=== PATIENT | female | born 1950 | race Caucasian/White ===

== ENCOUNTER 2024-01-30 09:17 | Inpatient (IN) | payer OTHER, SELFPAY ==
--- NOTE | 2024-01-30 09:36 | W.PN.CARDCBS ---
Addendum entered and electronically signed by Cornelius Almanza MD 01/30/24 11:35:
I saw and examined the patient.
The Glass Belt Sander's note was reviewed and I agree with the note.
Comment: Briefly, 73-year-old woman past medical history of persistent atrial fibrillation with 2 prior PVI's who has had recurrence of atrial fibrillation and now presents for sotalol loading
Currently in normal sinus rhythm
Monitor on telemetry while here
Check electrolytes and renal function
Serial twelve-lead ECGs to monitor QTc
Rest per Catherine Eatofelia
Original Note:
Today's Communication / Plan
-
Start sotalol 80 mg BID
Impression / Plan
-
PCP: Dr. Alvarez
Cardiology: primary research aide closer to home and then sees Dr. Mauricio Iniguez locally for EP
Impression:
Direct admission for sotalol load 01/30/24
Paroxysmal Afib
s/p PVI with additional AF ablation and mapping of second LA tachycardia 07/01/22
s/p PVI 11/01/22
HTN
Hyperlipidemia.
Gastroesophageal reflux disease.
Insomnia.
Breast cancer 2022, stage IB, status post right lumpectomy with lymph node dissection and radiation.
Remote tobacco abuse.
Spinal stenosis, degenerative disc disease with peripheral neuropathy.
Ambulatory dysfunction.
Tremor.
Osteoarthritis.
Obesity BMI 33.61.
Daily alcohol
Plan:
-Patient came to today as a direct admission for sotalol loading for recent recurrence of known paroxysmal Afib. Patient was seen in the office 01/25/24 and her Kardia monitor was reviewed and showed pAfib starting early 11/2023 and patient was in
Afib by ECG in office. Patient was agreeable to sotalol loading.
-Start sotalol 80 mg BID
-Patient has not missed any doses of Xarelto 20 mg daily
-Initial ECG appears to be SR with QTc 453 ms
-Follow HRs and if needed can lower dose of Toprol XL 50 mg BID
-Cont usual dose of Lasix 20 mg PO daily
Progress Note - Marketing Programs Specialist
Subjective
Date of Service: January 30, 2024
No palpitations
Objective
Vital Signs and I&O:
HR 65, BP 138/88 RR 12
Physical Exam
Physical Exam
GEN: NAD. AAOx3
HEENT: EOMI, MMM
LUNGS: CTA B/L, no wheezes or rales
CV: Reg, no murmur
ABD: soft, BS+, NT, ND
EXT: No clubbing, cyanosis, lesions or edema B/L
NEURO: Gross non-focal
SKIN: Warm, dry and pink. No rash
[2024-01-30 09:42] VITALS: BP 133/84
[2024-01-30 09:45] VITALS: BMI 34.4
[2024-01-30 10:10] LABS: Hematocrit 36.8 % (37.0-47.0); Hemoglobin 13.3 g/dL (12.0-16.0); Mean Corp Hgb Conc. 36.1 g/dL (33.0-37.0); Mean Corpuscular Hgb 33.5 pg (27.0-31.0); Mean Corpuscular Volume 92.7 fL (81.0-99.0); Mean Platelet Volume 9.4 fL (7.4-10.4); Platelet Count 282 10^3/uL (130-400); Red Blood Cell Count 3.97 10^6/uL (4.20-5.40); Red Cell Dist. Width 11.9 % (11.5-14.5); White Blood Cell Count 5.7 10^3/uL (4.8-10.8)
[2024-01-30 10:24] LABS: ALT (SGPT) 29 U/L (0-35); AST (SGOT) 29 U/L (14-36); Albumin 4.5 g/dl (3.5-5.0); Alkaline Phosphatase 48 U/L (38-126); Blood Urea Nitrogen 19 mg/dl (7-17); Calcium 9.5 mg/dl (8.4-10.2); Carbon Dioxide 24 mmol/L (22-30); Chloride 98 mmol/L (98-107); Glucose 96 mg/dl (70-99); Magnesium 1.6 mg/dl (1.6-2.3); Potassium 4.8 mmol/L (3.5-5.1); Sodium 131 mmol/L (135-145); Total Bilirubin 0.4 mg/dl (0.2-1.3); Total Protein 7.3 g/dl (6.3-8.2); eGFR > 60.00
--- NOTE | 2024-01-30 11:11 | CM ---
Reviewed chart. Met with Mrs. Marsh to review discharge plans. She states prior to admission she resides alone in a one story home with one step to enter. She states prior to admission she uses a rolling walker to ambulate as needed and independent
with adls. She has a walker at home. She states she has a prescription plan and uses [facility] and mail order. Medical work-up in progress. The discharge plan is to return home when medically stable.
[2024-01-30] MEDS: BETAPACE 80 MG PO ×2 (11:31→22:57)
[2024-01-30 11:44] VITALS: BMI 34.4
[2024-01-30 15:11] VITALS: BP 113/74
[2024-01-30] MEDS: XARELTO 20 MG PO (18:55)
[2024-01-30 19:53] VITALS: BP 143/93
[2024-01-30] MEDS: TOPROL XL 50 MG PO (20:00)
[2024-01-30 21:23] VITALS: BP 144/76
[2024-01-30] MEDS: NEURONTIN 1200 MG PO (21:25)
[2024-01-30] MEDS: COZAAR 25 MG PO (21:25)
[2024-01-30] MEDS: MYSOLINE 100 MG PO (21:26)
[2024-01-30 22:55] VITALS: BP 147/93
[2024-01-30] MEDS: BENADRYL 50 MG PO (22:57)
[2024-01-31] VITALS (8 sets, daily range): BP systolic 94–149; BP diastolic 58–84; BMI 33.8
--- NOTE | 2024-01-31 01:51 | PTCARENOTE ---
Pt. goes back & forth between NSR with first degree AVB and A-fib on the monitor, rate 50's-80's. 2nd dose sotalol given, QTc 2 hours post 475 ms. Pt. has no complaints, currently sleeping.
[2024-01-31 01:54] LABS: Blood Urea Nitrogen 21 mg/dl (7-17); Calcium 9.3 mg/dl (8.4-10.2); Carbon Dioxide 28 mmol/L (22-30); Chloride 100 mmol/L (98-107); Estimated Creatinine Clearance 83 ml/min; Glucose 98 mg/dl (70-99); Potassium 4.6 mmol/L (3.5-5.1); Sodium 132 mmol/L (135-145); eGFR > 60.00
--- NOTE | 2024-01-31 08:28 | PTCARENOTE ---
Rec'd pt AAOx3 from prev nsg shift w/no c/o CP or SOB. Pt refusing VS until after she eats at this time. Pt scheduled for 3rd dose of Sotalol PO at 1000. This RN discussed plan of care w/pt & she verbalized her understanding. Pt w/call padgett within
reach & plan of care ongoing.
[2024-01-31] MEDS: FOLVITE 0.400000000000000022 MG PO (08:44)
[2024-01-31] MEDS: MYSOLINE 50 MG PO (08:47)
[2024-01-31] MEDS: LASIX 20 MG PO (08:47)
[2024-01-31] MEDS: THERAGRAN 1 TABLET PO (08:48)
[2024-01-31] MEDS: PROTONIX 40 MG PO (08:48)
[2024-01-31] MEDS: NEURONTIN 600 MG PO (08:48)
[2024-01-31] MEDS: TOPROL XL 50 MG PO (08:48)
[2024-01-31] MEDS: TRIMPEX 100 MG PO (08:50)
[2024-01-31] MEDS: VITAMIN B1 100 MG PO (08:50)
[2024-01-31] MEDS: VITAMIN D3 (cholecalciferol) 125 MCG PO (08:50)
--- NOTE | 2024-01-31 09:37 | W.PN.CARDCBS ---
Addendum entered and electronically signed by Cornelius Almanza MD 01/31/24 16:17:
I saw and examined the patient.
The Intake Manager's note was reviewed and I agree with the note.
Comment: Briefly, 73-year-old woman past medical history of persistent atrial fibrillation with prior PVI who has had ongoing paroxysms of symptomatic atrial fibrillation and presents for sotalol loading
Initially in sinus rhythm however unfortunately went into atrial fibrillation overnight
Received her third dose of sotalol this morning and QTc has been stable
Plan for fifth dose tomorrow morning and if she remains in atrial fibrillation we will plan for direct-current cardioversion at that time
Original Note:
Today's Communication / Plan
-
CV in AM
Cont sotalol
Decrease Toprol XL to 25 mg BID due to bradycardia
Reglan 10 mg PO x1 for GOMEZ
Impression / Plan
-
PCP: Dr. Alvarez
Cardiology: primary sales representative raw fibers closer to home and then sees Dr. Mauricio Iniguez locally for EP
Impression:
Direct admission for sotalol load 01/30/24
Paroxysmal Afib
s/p PVI with additional AF ablation and mapping of second LA tachycardia 07/01/22
s/p PVI 11/01/22
initially in SR 01/30/24, but Afib on tele 01/31/24
HTN
Hyperlipidemia.
Gastroesophageal reflux disease.
Insomnia.
Breast cancer 2022, stage IB, status post right lumpectomy with lymph node dissection and radiation.
Remote tobacco abuse.
Spinal stenosis, degenerative disc disease with peripheral neuropathy.
Ambulatory dysfunction.
Tremor.
Osteoarthritis.
Obesity BMI 33.61.
Daily alcohol
Plan:
-Patient with recurrence of paroxysmal Afib overnight, patient says that she thinks that correlates with increased fatigue. HRs controlled.
-Will decrease Toprol XL to 25 mg BID due to bradycardia with sotalol loading 01/31/24
-QTc stable at 475 ms after 2nd dose of sotalol 80 mg BID given Monday night, 01/31/24
-CV scheduled for 02/01/24
-Patient has not missed any doses of Xarelto 20 mg daily
-Cont usual dose of Lasix 20 mg PO daily
-Patient complains of a GOMEZ. She is asking for Reglan which was very helpful for a migraine GOMEZ she had in [facility] 08/04/23. Will given Reglan 10 mg PO x1 now. Warned patient about chance of tardive dyskinesis. Patient is aware of TD and used to work in
a long-term care facility
HPI: Patient came to today as a direct admission for sotalol loading for recent recurrence of known paroxysmal Afib. Patient was seen in the office 01/25/24 and her Kardia monitor was reviewed and showed pAfib starting early 11/2023 and patient was
in Afib by ECG in office. Patient was agreeable to sotalol loading.
Progress Note - Coding Consultant
Subjective
Date of Service: January 31, 2024
She is tired and has a GOMEZ
Objective
Labs:
01/30/24 09:52
01/31/24 01:17
Labs
Hgb 13.3 g/dL (12.0-16.0) 01/30/24 09:52
Hct 36.8 % (37.0-47.0) L 01/30/24 09:52
Plt Count 282 10^3/uL (130-400) 01/30/24 09:52
Sodium 132 mmol/L (135-145) L 01/31/24 01:17
Potassium 4.6 mmol/L (3.5-5.1) 01/31/24 01:17
BUN 21 mg/dl (7-17) H 01/31/24 01:17
Creatinine 0.7 mg/dL (0.6-1.0) 01/31/24 01:17
Glucose 98 mg/dl (70-99) 04/10/24 01:17
Vital Signs and I&O:
Vital Signs
Temp Pulse Resp BP Pulse Ox
97.9 F 67 18 112/58 98
01/31/24 07:00 01/31/24 08:31 01/31/24 07:00 01/31/24 08:31 01/31/24 07:00
Vital Signs
Temp Pulse Resp BP Pulse Ox
97.9 F 67 18 112/58 98
01/31/24 07:00 01/31/24 08:31 01/31/24 07:00 01/31/24 08:31 01/31/24 07:00
Intake & Output
01/29/24 01/30/24 01/31/24 02/01/24
06:59 06:59 06:59 06:59
Intake Total 480 / 480
Balance 480 / 480
Physical Exam
Physical Exam
GEN: NAD. AAOx3
HEENT: EOMI, MMM
LUNGS: No wheeze
CV: Afib on tele
ABD: ND
EXT: No edema B/L
NEURO: Gross non-focal
SKIN: No rash
[2024-01-31] MEDS: BETAPACE 80 MG PO ×2 (10:07→21:00)
[2024-01-31] MEDS: REGLAN 10 MG PO (10:07)
[2024-01-31] MEDS: XARELTO 20 MG PO (18:00)
[2024-01-31] MEDS: NEURONTIN 1200 MG PO (18:00)
[2024-01-31] MEDS: TOPROL XL 25 MG PO (19:49)
[2024-01-31] MEDS: COZAAR 25 MG PO (22:07)
[2024-01-31] MEDS: BENADRYL 50 MG PO (22:07)
[2024-01-31] MEDS: MYSOLINE 100 MG PO (22:07)
--- NOTE | 2024-02-01 00:07 | PTCARENOTE ---
Pt received at start of shift, HR A-fib w/ underlying SR w/ 1st degree AV block. Educated pt on plan of care, pt states no questions at this time. Pt states they don't know if they would be comfortable leaving tomorrow if sotalol/CV does not take.
4th dose of Sotalol administered as ordered, one hour later QTc 501. Pt states a baseline SOB/low energy when in a-fib. Pt denies any CP, worsening SOB, lightheadedness, or dizziness at this time. Informed to notify RN if any changes, call padgett
within reach.
[2024-02-01 05:08] VITALS: BP 129/81
[2024-02-01 05:14] VITALS: BMI 33.9
[2024-02-01 06:02] LABS: Blood Urea Nitrogen 20 mg/dl (7-17); Calcium 9.1 mg/dl (8.4-10.2); Carbon Dioxide 27 mmol/L (22-30); Chloride 99 mmol/L (98-107); Estimated Creatinine Clearance 83 ml/min; Glucose 90 mg/dl (70-99); Potassium 4.5 mmol/L (3.5-5.1); Sodium 131 mmol/L (135-145); eGFR > 60.00
[2024-02-01 07:27] VITALS: BP 124/74
--- NOTE | 2024-02-01 07:31 | W.PN.CARDCBS ---
Addendum entered and electronically signed by Minal Rajput PA-C 02/01/24 15:19:
[id number]
Addendum entered and electronically signed by Billy Negron MD 02/01/24 11:04:
I saw and examined the patient.
The Blood Bank Booking Clerk's note was reviewed and I agree with the note.
Comment:
GEN: No distress, awake, Ox3
HEENT: supple, anicteric, mmm
LUNGS: CTA, no wheezes/rales
CV: Reg, S1/S2, 1/6 syst LSB, no gallop
ABD: soft, BS+, NT/ND
EXT: No edema
NEURO: Gross non-focal
SKIN: No rash
Plan:
S/p CV and back in rhythm
Cont Sotalol 80mg po bid
Qtc 485msec.
Cont Xarelto
for D/C today
Original Note:
Today's Communication / Plan
-
Continue Sotalol loading
HR stable on Toprol 25mg BID
Continue Xarelto 20mg daily
CV and likely discharge today
Impression / Plan
-
PCP: Dr. Alvarez
Cardiology: primary biochemistry technologist closer to home and then sees Dr. Mauricio Iniguez locally for EP
Impression:
Direct admission for sotalol load 01/30/24
Paroxysmal Afib
s/p PVI with additional AF ablation and mapping of second LA tachycardia 07/01/22
s/p PVI 11/01/22
initially in SR 01/30/24, but Afib on tele 01/31/24
HTN
Hyperlipidemia.
Gastroesophageal reflux disease.
Insomnia.
Breast cancer 2022, stage IB, status post right lumpectomy with lymph node dissection and radiation.
Remote tobacco abuse.
Spinal stenosis, degenerative disc disease with peripheral neuropathy.
Ambulatory dysfunction.
Tremor.
Osteoarthritis.
Obesity BMI 33.61.
Daily alcohol
Plan:
-Presented for sotalol loading for recurrent paroxysmal atrial fibrillation.
-Loading with sotalol 80mg BID. QTc 501ms after PM dose 01/31/2024.
-HRs stable, did have some bradycardia this admission and Toprol was decreased to 25mg BID.
-Remains NPO for CV today, 02/01/2024
-Patient has not missed any doses of Xarelto 20 mg daily
-Cont usual dose of Lasix 20 mg PO daily
-Plan is for discharge later today after CV.
HPI: Patient came to today as a direct admission for sotalol loading for recent recurrence of known paroxysmal Afib. Patient was seen in the office 01/25/24 and her Kardia monitor was reviewed and showed pAfib starting early 11/2023 and patient was
in Afib by ECG in office. Patient was agreeable to sotalol loading.
Progress Note - Gl Accountant
Subjective
Date of Service: February 01, 2024
Feels well this AM. No issues overnight, remains in Afib.
Objective
Labs:
01/30/24 09:52
02/01/24 05:28
Labs
Hgb 13.3 g/dL (12.0-16.0) 01/30/24 09:52
Hct 36.8 % (37.0-47.0) L 01/30/24 09:52
Plt Count 282 10^3/uL (130-400) 01/30/24 09:52
Sodium 131 mmol/L (135-145) L 02/01/24 05:28
Potassium 4.5 mmol/L (3.5-5.1) 02/01/24 05:28
BUN 20 mg/dl (7-17) H 02/01/24 05:28
Creatinine 0.7 mg/dL (0.6-1.0) 02/01/24 05:28
Glucose 90 mg/dl (70-99) 02/01/24 05:28
Vital Signs and I&O:
Vital Signs
Temp Pulse Resp BP Pulse Ox
97.5 F 66 20 129/81 96
02/01/24 07:24 02/01/24 06:00 02/01/24 07:24 02/01/24 05:08 02/01/24 07:24
Vital Signs
Temp Pulse Resp BP Pulse Ox
97.5 F 66 20 129/81 96
02/01/24 07:24 02/01/24 06:00 02/01/24 07:24 02/01/24 05:08 02/01/24 07:24
Intake & Output
01/30/24 01/31/24 02/01/24 02/02/24
06:59 06:59 06:59 06:59
Intake Total 480 / 480 1200 / 1200
Balance 480 / 480 1200 / 1200
Physical Exam
Physical Exam
GEN: NAD. AAOx3
HEENT: EOMI, MMM
LUNGS: No wheeze
CV: irregularly irregular, no murmur
EXT: No edema B/L
NEURO: Gross non-focal
SKIN: Warm, dry, no rash
[2024-02-01] MEDS: THERAGRAN 1 TABLET PO (08:38)
[2024-02-01] MEDS: NEURONTIN 600 MG PO (08:38)
[2024-02-01] MEDS: VITAMIN D3 (cholecalciferol) 125 MCG PO (08:38)
[2024-02-01] MEDS: TOPROL XL 25 MG PO (08:38)
[2024-02-01] MEDS: TRIMPEX 100 MG PO (08:38)
[2024-02-01] MEDS: MYSOLINE 50 MG PO (08:39)
[2024-02-01] MEDS: LASIX 20 MG PO (08:39)
[2024-02-01] MEDS: FOLVITE 0.400000000000000022 MG PO (08:39)
[2024-02-01] MEDS: BETAPACE 80 MG PO (08:39)
[2024-02-01] MEDS: VITAMIN B1 100 MG PO (08:39)
[2024-02-01] MEDS: PROTONIX 40 MG PO (08:39)
--- NOTE | 2024-02-01 10:56 | ITS.CL.CARDI ---
[employer] - Cardioversion
Cardioversion
Procedure Report:
Date of Procedure:
Procedure: Cardioversion
Indication: Symptomatic atrial fibrillation
Performing Physician: Billy Negron MD
Technique: The patient was brought to the holding area. Signed informed consent was obtained. A time out was called and performed. The patient was anesthetized by the anesthesia service. Anticoagulation status was reviewed and appropriate. R2 pads
were placed anteriorly and posteriorly. A 200 J synchronized biphasic shock restored normal sinus rhythm without significant bradycardia. There were no complications.
Conclusion: Uncomplicated cardioversion from atrial fibrillation to sinus rhythm.
Recommendation: Routine post cardioversion care. Continue fdc anticoagulation.
[2024-02-01 11:35] VITALS: BP 111/69
--- NOTE | 2024-02-01 12:15 | W.DS.TRANS ---
DC Summary - Kennel Helper
-
Discharge Instructions:
Sleep Apnea Risk Intermediate
Discharge Diagnosis/Procedures Admission for sotalol loading for paroxysmal
atrial fibrillation, s/p cardioversion
Diet Low Fat,Low Sodium
Activity Other activity
Driving Restrictions No driving for 24 hours
Bathing Restrictions None
Instructions:
Stand-Alone Forms: DC Instructions- Cath/EP Lab
Changes to Home Medications: Yes
Discharge Medications:
DC Medications w/original date entered in [employer]
Premarin 1 dose vaginal .BIWEEKLY Hormonal Agent 06/23/22
jvfvhyt-tgtijmzca-crqz tablet 3 tab PO Q48H Supplement 06/23/22
cholecalciferol (vitamin D3) 125 mcg (5,000 unit) tablet (Vitamin D3) 125 mcg PO DAILY Supplement 06/23/22
diphenhydramine HCl 25 mg capsule (Benadryl) 50 mg PO HS Sleep 06/23/22
folic acid 400 mcg tablet 400 mcg PO DAILY Supplement 06/23/22
furosemide 20 mg tablet 20 mg PO DAILY Fluid Retention/Swelling 06/23/22
losartan 25 mg tablet 25 mg PO HS Blood Pressure 06/23/22
primidone 50 mg tablet 50 mg PO DAILY Neurological Condition 06/23/22
primidone 50 mg tablet 100 mg PO HS Neurological Condition 06/23/22
rivaroxaban 20 mg tablet (Xarelto) 20 mg PO QPM Blood Clot Prevention/Tx 06/23/22
thiamine HCl (vitamin B1) 100 mg tablet 100 mg PO DAILY Supplement 06/23/22
tramadol 50 mg tablet 50 mg PO PRN PRN PAIN 06/23/22
vitamin B complex 1 tab PO DAILY Supplement 06/23/22
multivitamin 1 tab PO DAILY Supplement 10/20/23
trimethoprim 100 mg tablet 100 mg PO DAILY Infection 11/01/23
omeprazole 20 mg tablet,delayed release 20 mg PO DAILY #1 tab 11/02/23
anastrozole 1 mg tablet 1 mg PO DAILY #30 tabs 01/31/24
gabapentin 300 mg capsule 600 mg (2 x 300 mg) PO DAILY #30 caps 01/31/24
gabapentin 400 mg capsule 1,200 mg (3 x 400 mg) PO QPM #30 caps 01/31/24
metoprolol succinate 25 mg tablet,extended release 24 hr (Toprol XL) 25 mg PO BID Arrhythmia #60 tabs 01/31/24
sotalol 80 mg tablet 80 mg PO BID Arrhythmia #60 tabs 01/31/24
Home Medication Changes
Sotalol is new
Metoprolol dose reduced
Pending Results: No
[2024-02-01 15:54] VITALS: BP 99/52
--- NOTE | 2024-02-01 18:12 | PTCARENOTE ---
Pt's IV line & telemetry monitoring discontinued; Pt D/C'd to sister's house w/sister providing transportation. Pt left via WC w/personal belongings including cell phone & clothing.
== END 2024-02-01 17:59 | disposition home or self-care (01) | DRG 310 ==
LOC: IVU 09:17
PROVIDERS: Internal Medicine Cardiovascular Disease; Physician Assistant Medical; ADMITTING PHYSICIAN Internal Medicine Cardiovascular Disease
PROC: 3E0DXRZ Introduction of Antiarrhythmic into Mouth and Pharynx, External Approach (ICD-10-PCS; 2024-01-30)
PROC: 5A2204Z Restoration of Cardiac Rhythm, Single (ICD-10-PCS; 2024-02-01)
DX: I48.0 Paroxysmal atrial fibrillation (principal); I10 Essential (primary) hypertension; E78.5 Hyperlipidemia, unspecified; R25.1 Tremor, unspecified; R26.2 Difficulty in walking, not elsewhere classified; G62.9 Polyneuropathy, unspecified; K21.9 Gastro-esophageal reflux disease without esophagitis; G47.00 Insomnia, unspecified; M48.00 Spinal stenosis, site unspecified; M19.90 Unspecified osteoarthritis, unspecified site; E66.9 Obesity, unspecified; Z68.33 Body mass index [BMI] 33.0-33.9, adult; Z79.01 Long term (current) use of anticoagulants; Z85.3 Personal history of malignant neoplasm of breast; Z87.891 Personal history of nicotine dependence
CPT/HCPCS: 80048; 80053; 83735; 85027; 93005

== ENCOUNTER 2024-07-08 05:51 | Day surgery (SDC) | payer OTHER, SELFPAY ==
[2024-07-08] VITALS (12 sets, daily range): BP systolic 147–179; BP diastolic 74–135
[2024-07-08 06:35] LABS: Hematocrit 33.9 % (37.0-47.0); Hemoglobin 12.4 g/dL (12.0-16.0); Mean Corp Hgb Conc. 36.6 g/dL (33.0-37.0); Mean Corpuscular Hgb 34.3 pg (27.0-31.0); Mean Corpuscular Volume 93.9 fL (81.0-99.0); Mean Platelet Volume 9.2 fL (7.4-10.4); Platelet Count 257 10^3/uL (130-400); Red Blood Cell Count 3.61 10^6/uL (4.20-5.40); Red Cell Dist. Width 12.7 % (11.5-14.5); White Blood Cell Count 7.5 10^3/uL (4.8-10.8)
[2024-07-08 06:59] LABS: ALT (SGPT) 20 U/L (0-35); AST (SGOT) 27 U/L (14-36); Albumin 4.3 g/dl (3.5-5.0); Alkaline Phosphatase 59 U/L (38-126); Blood Urea Nitrogen 24 mg/dl (7-17); Calcium 9.3 mg/dl (8.4-10.2); Carbon Dioxide 26 mmol/L (22-30); Chloride 96 mmol/L (98-107); Glucose 96 mg/dl (70-99); Potassium 4.4 mmol/L (3.5-5.1); Sodium 133 mmol/L (135-145); Total Bilirubin 0.5 mg/dl (0.2-1.3); Total Protein 6.8 g/dl (6.3-8.2); eGFR > 60.00
[2024-07-08 09:03] LABS: ACT-LR - POC 337 Seconds (116-155)
[2024-07-08 09:47] LABS: ACT-LR - POC 350 Seconds (116-155)
[2024-07-08] MEDS: ANESTHETIC LOZENGE 1 LOZENGE PO (11:10)
--- NOTE | 2024-07-08 11:15 | ITS.CL.ABL ---
[employer] - Ablation
Ablation
Procedure Report:
ELECTROPHYSIOLOGIC STUDY AND POSSIBLE ABLATION
DATE: July 08, 2024
Primary Care Provider: Dr Arianna Pierre
INDICATION:
Symptomatic Atrial Fibrillation.
Paroxysmal
HISTORY: See H and P.
Symptomatic AF, poorly controlled with attempted medical therapy
In atrial fibrillation, she was noted to have modest cardiomyopathy with ejection fraction down to 40-45%. Subsequently LV function normalized with pentecostalism of sinus rhythm and control of ventricular rate.
She has continued to recur with symptomatic atrial fibrillation despite antiarrhythmic drug therapy with amiodarone. There is associated cardiomyopathy with ejection fraction of 40 to 45% with subsequent normalization of left ventricular systolic
function with pentecostalism of sinus rhythm.
Underwent PVI July 01, 2023 and subsequently recurred with symptomatic atrial fibrillation requiring ablation and October 2023. She has continued to have symptomatic recurrences and presents today for remapping and possible ablation..
HAS-BLED: 1
Age
CHADSVASc: 4
CHF, (HF recovered/improved EF)
HTN
Age
F Gender
PRESENTING RHYTHM: SR
HISTORY: See H and P.
Symptomatic AF, poorly controlled with attempted medical therapy.
ANTIARRHYTHMIC DRUG: amiodarone
ANTICOAGULATION: Rivaroxaban
'TIME-OUT': called and confirmed.
SEDATION/ANESTHESIA: provided via the anesthesia department using general anesthesia.
PROCEDURE:
Ultrasound Guidance performed by sd was utilized for femoral venous Vascular Access b/l.
A decapolar CS catheter was placed within the CS for mapping and pacing.
The intracardiac ultrasound catheter was positioned in the RA for continuous intracardiac ultrasound imaging.
Heparin bolus and infusion to target ACT at 300 -350 seconds was administered. Transseptal puncture was performed. This entailed advancing a sheath with dilator into the superior vena cava and withdrawing both (monitoring intracardiac ultrasound,
fluoroscopy and tip pressure) with the tip oriented toward the atrial septum. The fossa ovalis was engaged (indicated by sudden displacement of the sheath tip as well as tenting of the fossa seen on intracardiac ultrasound).
The [employer] transseptal system was used. Left atrial catheter position was confirmed by echocardiographic imaging and fluoroscopy followed by RF delivery using the [employer] system resulting in successful LA access with pressure monitoring
demonstrating LA pressure waveforms (LA mean pressure 14 mm Hg). The sheath was advanced over the dilator and positioned in the left atrium.
The [employer] Grid multipolar mapping catheter was initially positioned through the transseptal sheath for high density mapping.
Geometry and voltage mapping was performed using the [employer] multipolar grid catheter. Navex was utilized for three-dimensional electroanatomical mapping.
A 3-D map was created using Navex. A 3-D reconstructed CT image was compared to the 3-D Navex map to assist in anatomic evaluation, mapping and ablation.
High density electroanatomical mapping finds that there is reconnection at the left inferior pulmonary vein towards its inferior quadrant. Otherwise the remaining pulmonary veins are electrically isolated at their ostia.
The [employer] PFA catheter and system was used for cardiac ablation. Catheter positioning was guided and confirmed using both I.C.E. and fluoroscopy.
Ablation strategy consisted of reisolating the left inferior pulmonary vein and also extending ablation in a wider area circumferential fashion around each of the pulmonary vein sets particularly anteriorly at the left sided veins towards the
ligament of [place]. Furthermore additional ablation set was performed isolating the posterior wall of the left atrium given her multiple recurrences and the findings of rather fractionated electrograms in sinus rhythm on the posterior wall of the
left atrium. At the end of ablation there is electrical isolation with both entrance and exit block at each PV ostia (LSPV, LIPV, RSPV, RIPV), wide circumferential ablation around each pulmonary vein set and entrance and exit block at the posterior
wall of the left atrium.
Next programmed electrical stimulation was performed and with burst atrial pacing at 350 ms and atrial tachycardia was induced. Using activation mapping as well as entrainment a reentrant circuit is identified at the anterior left atrium and an
area just outside of the ostium of the left atrial appendage between the ostium of the left atrial appendage and the mitral valve annulus.
Given the anterior left atrial location and plan for delivery of pulse electric field energy there is concern for the possibility of coronary artery vasospasm. Therefore IV pressure was administered to raise the mean arterial pressure. This was
followed by the administration of 500 mcg of nitroglycerin intravenously to reduce the likelihood of coronary artery vasospasm. Next the the ablation catheter was positioned at the targeted area with the catheter in the flower position and location
confirmed by intracardiac echocardiogram. Delivery of pulsed electric field energy terminated the left atrial tachycardia. Additional lesions were given in this location to create a line of electrical block from the left atrial appendage
anteriorly to the mitral valve annulus. Programmed electrical stimulation could now no longer induce any tachycardias.
I.C.E. :
Pre-Ablation Post-Ablation
LVEF: 55% 55%
WMA: None None
Pericardial effusion: Trace posterior Trace posterior
COMPLICATIONS:
None
SUMMARY:
- Mapping and ablation to isolate the PVs
- Additional AF ablation set after PVI (wide area circumferential ablation as well as left atrial posterior wall ablation).
- Mapping and ablation of second tachycardia (left atrial tachycardia)
- 3-D Electroanatomical Mapping
- Intracardiac Ultrasound
Post ablation, I discussed today's findings and results with the patient's sister, Lyubov.
RECOMMENDATIONS:
- Observe in monitored bed.
- Maintain oral anticoagulation.
-Discontinue amiodarone
- Office visit with me in 3 months.
Copy to:
Dr Arianna Pierre
[2024-07-08 12:10] LABS: ACT-LR - POC > 397 Seconds (116-155)
[2024-07-08] MEDS: TOPROL XL 25 MG PO (12:14)
--- NOTE | 2024-07-08 15:13 | W.PN.UPDATE ---
Update Note
Progress Note Update
Pt seen post PFA. Right groin site without ht/bleeding, non tender. OOB ambulating, urinating without difficulty. Post EKG NSR 84, no acute changes. Resume Xarelto tonight at usual time. Will discontinue amiodarone for now and maintain sotalol as
before. Followup with Dr. Iniguez as scheduled. Home today if groin site/tele remain stable.
== END 2024-07-08 15:02 | disposition home or self-care (01) ==
LOC: CATH 05:51
PROVIDERS: ATTENDING PHYSICIAN Internal Medicine Cardiovascular Disease
DX: I48.91 Unspecified atrial fibrillation (principal); I47.19 Other supraventricular tachycardia; I42.9 Cardiomyopathy, unspecified; I11.0 Hypertensive heart disease with heart failure; I50.9 Heart failure, unspecified; Z79.01 Long term (current) use of anticoagulants
CPT/HCPCS: C1769; C1894; C1730; C1892; 80053; 85027; 85347; 86850; 86900; 86901; 93005; 93655; 93656; 93657; C1732

== ENCOUNTER 2024-07-10 05:17 | Inpatient (IN) | payer OTHER, SELFPAY ==
[2024-07-10] VITALS (16 sets, daily range): BP systolic 60–140; BP diastolic 53–70; PULSE 61–74; BMI 34.1; BMI 33.8
--- NOTE | 2024-07-10 00:43 | ED.GENMED ---
History of Present Illness
General
Chief Complaint: Urinary Symptoms
Time Seen by Provider: 07/10/24 00:22
History of Present Illness
History of Present Illness:
74-year-old female with history of atrial fibrillation on Xarelto presenting to the emergency department for abdominal distention and bruising. Patient s/p cardiac ablation on 07/08 for her atrial fibrillation. Patient had access obtained through
the right groin. She notes after the procedure, she did urinate, 800 cc of urine. However, since discharge from the hospital has been unable to urinate. Notes lower abdominal pressure as well as diffuse bruising to the lower abdomen and pelvis.
Denies issues with urinary retention in the past. Denies fever. Denies chest pain or difficulty breathing. Denies vomiting. Denies additional acute medical complaints
Phy Exam
Physical Exam
Physical Exam:
General: Well-appearing, no clinical signs of dehydration, nontoxic and in no acute distress
HEENT: protecting airway
Neck: appears supple
CV: Normal heart rate, regular rhythm
Resp: No accessory muscle use, no increased work of breathing, lungs clear to auscultation bilaterally
Abd: Mild to moderate distention to the lower abdomen with diffuse ecchymosis to the suprapubic abdomen and the mons pubis. Ecchymosis also extending to the right inguinal region. No active bleeding. Mild tenderness to palpation
Extremities: No deformities, no swelling, no erythema, pulses and sensation intact
Neuro: alert, no focal neurologic deficit
: deferred
Rectal: deferred
Psych: Normal affect
Skin: Intact
Course
Orders/Labs/Results
Orders:
Orders
07/10/24 00:41
CT Abd/pelvis Angio W/wo Iv Urgent
Comment:
Reason For Exam: s/p ablation, diffuse ecchymosis to low abd/vagina
07/10/24 01:15
Complete Blood Count/No Diff Urgent
Comprehensive Metabolic Panel Urgent
PTT Urgent
Prothrombin Time Urgent
Urinalysis Reflex To Culture Urgent
Date Specimen was Collected: 07/10/24
Time Specimen was Collected: 00:40
Urine Microscopic Reflex Cult Urgent
Urine Culture Urgent
DEIRDRE Source: U
Specimen Description:
Date Specimen was Collected: 07/10/24
Time Specimen was Collected: 00:40
07/10/24 03:06
Cefepime HCl [Maxipime] 2,000 mg IV NOW STA
07/10/24 03:18
Sterile Water [Sterile Water For Injection] 10 ml .ROUTE .STK-MED ONE
07/10/24 04:02
Admit/Transfer Patient As Directed
Co-Sign Provider:
Level of Care: Inpatient admission
Assign to:: Telemetry
Physician / Group: hospitalist
Diagnosis: urinary retention, R groin hematoma, uti
Reason for Telemetry: Other
Other Reason for Telemetry: hematoma, catheter ablation yesterday
Date to Stop Telemetry: 07/12/24
Time to Stop Telemetry: 11:00
Reason for Hospitalization: right groin hematoma, blood loss
Expected length of stay greater than two midnights?: Yes
ELOS- Estimated Length of Stay in days: 2
I certify the patient meets the requirements for IP care: Yes
PRN Pain Medication Management As Directed
May give lesser potent ordered pain med per pt: Yes
preference::
Protocol:: Medication orders for pain may be administered in a
manner that supports deferring to patient preference
when the pt is:
- Requesting an ordered lesser potent pain medication.
Least to most potent pain medications are defined
as: acetaminophen < NSAID < tramadol < opioids
(morphine, oxycodone, hydromorphone).
- Requesting a lesser dose of the same medication IF
ORDERED.
- Requesting a less intrusive route of administration
if both routes are prescribed by the provider (PO <
IV).
07/10/24 04:03
Code Status As Directed
Resuscitation Status: Full Code
07/10/24 04:06
Fluconazole [Diflucan] 150 mg PO NOW STA
07/10/24 05:00
Flush (0.9% Sodium Chloride) [Flush (Nss)] See Dose Instructions IV PER PROTOCOL
07/10/24 05:50
Acetaminophen [Tylenol] 650 mg PO Q6HPRN PRN
07/10/24 05:50
SURGICAL CONSULT Routine
Consulting Provider: Cassidy Spicer
Was physician already notified: Yes
Reason for consult: right groin hematoma, pseudoaneurysm
Activity As Directed
Activity Level: With Assistance
INT (Intravenous Needle Therapy) As Directed
Comment: Place 2 IV catheters of the largest bore possible until stable
Orthostatic Vital Signs As Directed
Orthostatic VS Frequency: Now
Comment: then every four hours for twenty-four hours
Pneumatic Compression Sleeves As Directed
Type: Knee high
Vital Signs As Directed
Frequency: Per unit guidelines
DX Deep Vein Thrombosis Video Routine
07/10/24 Breakfast
NPO
Allow oral meds: Yes
Allow clear liquids: Sips of Clears
07/10/24 08:00
Gabapentin [Neurontin] 600 mg PO DAILY
Metoprolol Xl [Toprol Xl] 25 mg PO BID
Pantoprazole [Protonix] 40 mg PO DAILY
Primidone [Mysoline] 50 mg PO DAILY
cycloSPORINE [Restasis 0.05% Ophthalmic Emulsion] 1 drops OPHTH Q12
07/10/24 09:38
H&H Q8H
07/10/24 18:00
Diphenhydramine [Benadryl] 50 mg PO QPM
FOLic ACID [Folvite] 0.4 mg PO QPM
Gabapentin [Neurontin] 1,200 mg PO QPM
Primidone [Mysoline] 100 mg PO QPM
Thiamine HCl [Vitamin B1] 100 mg PO QPM
07/10/24 19:00
H&H Q8H
07/10/24 22:00
Furosemide [Lasix] 20 mg PO HS
07/11/24 10:00
CefTRIAXone [Rocephin] 1,000 mg IV Q24H
07/12/24 11:00
DC Protocol for Telemetry ONCE
Abnormal Lab Results
07/10/24
01:15
RBC 2.74 L 10^6/uL
(4.20-5.40)
Hgb 9.8 L D g/dL
(12.0-16.0)
Hct 27.7 L %
(37.0-47.0)
MCV 101.1 H fL
(81.0-99.0)
MCH 35.8 H pg
(27.0-31.0)
PT 23.5 H Sec
(11.4-14.6)
APTT 42.4 H Sec
(23.4-35.0)
Chloride 95 L mmol/L
(98-107)
BUN 20 H mg/dl
(7-17)
AST 42 H U/L
(14-36)
Ur Occult Blood Reflex 1+ A
(Negative)
Urine Nitrite (Reflex) Positive A
(Negative)
Urine Bilirubin 2+ A
(Negative)
Urine Urobilinogen 2+ A
(Neg - 1+)
Leukocyte Esterase Rfl 2+ A
(Negative)
Urine WBC (Reflex) 11-15 A /HPF
(0-5)
Urine Bacteria (Reflex) Few A
(Negative)
07/10/24 01:15
07/10/24 01:15
Vital Signs
Initial and Last Documented VS:
Initial Vital Signs
Temp Pulse Resp BP Pulse Ox
98.3 F 76 24 136/60 98
07/10/24 00:15 07/10/24 00:15 07/10/24 00:15 07/10/24 00:15 07/10/24 00:15
Last Documented Vital Signs
Temp Pulse Resp BP Pulse Ox
98.3 F 68 16 164/92 98
07/12/24 15:03 07/12/24 15:03 07/12/24 15:03 07/12/24 15:03 07/12/24 15:03
MDM/Problems Addressed
MDM/Problems Addressed:
74-year-old female with history of A-fib on Xarelto presenting with difficulty urinating and bruising to the abdomen and pelvis after cardiac ablation 07/08. Vital signs on arrival are normal.
On exam, patient is in no acute distress, slightly uncomfortable secondary to pain. Abnormal bruising seen to the lower abdomen and vaginal region of unclear etiology. Most prominent to the inguinal region where patient had been accessed for her
ablation. Unclear etiology of bruising. Given anticoagulation and recent procedure, will proceed with laboratory analysis and CT imaging to ensure no active vascular issue. Patient also has not urinated since yesterday, concerned that she is
retaining. Possibly from anesthesia reaction, however patient does note that she urinated after procedure yesterday. Will BladderScan and place Perez catheter if necessary.
02:00 -patient retaining 400 cc of urine. Perez catheter placed. Urine does show evidence of urinary tract infection. Will start antibiotics. Blood work is significant for a hemoglobin of 9.8, which has acutely dropped from 12.4 on 07/08.
Pending CT imaging.
03:00 - CT shows concern for a hematoma in the right inguinal fold, however no active extravasation. However there is also an adjacent pseudoaneurysm. Given her anticoagulation and acute hemoglobin drop, plan for admission. Will alert vascular
surgery
*Critical Care Note
Total Time (30-74mins, 75-104mins- exclusive of procedures): Not Applicable
ED Attending Note
-
Portions of this chart may have been created with voice recognition software.� Occasional wrong word or��sound alike� substitutions may have occurred due to the inherent limitations of voice recognition software.
Discharge Plan
Departure
Patient Disposition: Admit
Date of Disposition: 07/10/24
Time of Disposition: 03:12
Presentation/result/management discussed w/ accepting MD/DO: Hospitalist
Condition: Fair
Discharge Problem:
Acute urinary retention, Urinary tract infection, Pseudoaneurysm of femoral artery following procedure
Interventions
Interventions:
*Risk Screen - Suicide Last Done: 07/10/24 00:15
*General Assessment Last Done: 07/10/24 00:49
*Neglect/Abuse Screening Last Done: 07/10/24 00:15
ED- Fall Risk Assessment Last Done: 07/10/24 00:49
*ED COVID-19 Vaccine History Last Done: 07/10/24 05:51
*Nursing Disposition Last Done: 07/10/24 06:04
ED- Cardiac Assessment Last Done: 07/10/24 00:49
ED-Female Genitourinary Assessment Last Done: 07/10/24 00:49
ED- Pulmonary Assessment Last Done: 07/10/24 00:49
ED-Skin Assessment Last Done: 07/10/24 00:49
Discharge Date and Time
Discharge Date/Time: 07/10/24 05:25
--- NOTE | 2024-07-10 03:08 | DOWNTIME ---
There was a [employer] Client [employer] Downtime on 07/10/2024 from 0100 to 07/10/2024 at 0300. Downtime documentation of patient's care, including medication administrations, has been reconciled in the electronic record per guidelines. Refer to the
patient's paper chart under the miscellaneous tab to see printed paper medication records and downtime forms.
[2024-07-10 03:16] LABS: ALT (SGPT) 21 U/L (0-35); AST (SGOT) 42 U/L (14-36); Alkaline Phosphatase 49 U/L (38-126); Blood Urea Nitrogen 20 mg/dl (7-17); Calcium 8.6 mg/dl (8.4-10.2); Carbon Dioxide 30 mmol/L (22-30); Chloride 95 mmol/L (98-107); Estimated Creatinine Clearance 64 ml/min; Glucose 92 mg/dl (70-99); Sodium 135 mmol/L (135-145); Total Bilirubin 0.4 mg/dl (0.2-1.3); Total Protein 6.3 g/dl (6.3-8.2); eGFR > 60.00
[2024-07-10 03:17] LABS: Urine Albumin Negative (Neg - Trace); Urine Bilirubin 2+ (Negative); Urine Character Slightly Cloudy (Clear); Urine Color Amber; Urine Glucose Negative (Negative); Urine Ketone Negative (Negative); Urine Leukocyte 2+ (Negative); Urine Nitrite Positive (Negative); Urine Occult Blood 1+ (Negative); Urine Specific Gravity 1.005 (<1.030); Urine Urobilinogen 2+ (Neg - 1+); Urine pH 6.5 (5.0-9.0)
[2024-07-10 03:20] LABS: Urine Bacteria Few (Negative); Urine Red Blood Cell 0-2 /HPF (0-2); Urine Squamous Cell 0-2 /LPF (Few)
[2024-07-10] MEDS: MAXIPIME 2000 MG IV (03:21)
[2024-07-10 03:22] LABS: Hematocrit 27.7 % (37.0-47.0); Hemoglobin 9.8 g/dL (12.0-16.0); Mean Corp Hgb Conc. 35.4 g/dL (33.0-37.0); Mean Corpuscular Hgb 35.8 pg (27.0-31.0); Mean Corpuscular Volume 101.1 fL (81.0-99.0); Mean Platelet Volume 9.7 fL (7.4-10.4); Platelet Count 201 10^3/uL (130-400); Red Blood Cell Count 2.74 10^6/uL (4.20-5.40); Red Cell Dist. Width 13.2 % (11.5-14.5)
[2024-07-10 03:23] LABS: INR 2.11
[2024-07-10 03:24] LABS: APTT 42.4 Sec (23.4-35.0); PT 23.5 Sec (11.4-14.6)
--- NOTE | 2024-07-10 03:38 | HPS.HSE ---
Family Physician
-
Family Physician: PHYSICIAN PRIVATE
Chief Complaint
-
Difficulty urinating and abdominal discomfort
History of Present Illness
This is a 74-year-old female past medical history significant for atrial fibrillation on anticoagulation coming in with generalized bruising to the suprapubic region, lower abdominal distention bruising and pain and difficulty urinating that started
1 day after discharge for a cardiac ablation for atrial fibrillation.
Patient has a history of GERD, hypertension, hyperlipidemia, breast cancer status postlumpectomy in 2022 and paroxysmal atrial fibrillation status post cardioversion in January and had the catheter ablation on July 08. She was discharged on the
. Patient reported lower abdominal swelling and discomfort. She reports difficulty urinating. She reports having some chills while waiting for me in the ED. She had no fevers at home. There was no nausea or vomiting. She was having no
diarrhea. She did not feel lightheaded or dizzy. She took her last dose of Xarelto in the evening of July 09. On ED she was noted to have generalized bruising to the suprapubic region and vaginal area as well as right groin tenderness with
palpation.
She was hemodynamically stable with a blood pressure of 120/60 pulse of 64. She was afebrile. Was in saturation was 95%. Hemoglobin dropped to 9.8 from 12.4. Platelet count was normal. INR was 2.1. Chemistries were within normal limits. She
had a CT of the abdomen and pelvis showing a 4.1 x 2.1 x 5.5 cm hematoma in the right inguinal fold and adjacent pseudo aneurysm measuring up to 8 mm and 4 mm. No extravasation noted. Patient also had some urinary retention with 400 cc of urine in
the bladder. A catheter was placed. UA was positive for nitrites leukocyte esterase white cells and bacteria.
Medical History
Past Medical History
Past Medical History: Reports Asthma (Atrial fibrillation status post cath ablation.), Cancer (Breast cancer status post lumpectomy), GERD and HTN
Past Surgical History: Reports None
Social History
Tobacco: Former Smoker
Alcohol: None
Drug: None
Living: With Family
Employment: Retired
Family History
Family History: Not pertinent
Allergies / Home Medications
Allergies reflects when Allergies were last updated in [facility].
Home Medications with original date entered in [facility] [address]
Allergy/Medication List:
Allergies
Allergy/AdvReac Type Severity Reaction Status Date / Time
codeine Allergy VAGINAL Verified 07/10/24 00:17
[From Tylenol-Codeine #3] IRRITATION
sulfamethoxazole Allergy mouth sores Verified 07/10/24 00:17
[From Bactrim]
trimethoprim [From Bactrim] Allergy mouth sores Verified 07/10/24 00:17
Home Medications
Premarin 1 dose vaginal WESA Hormonal Agent 06/23/22
dpdvgrx-pmnqspkqv-bhvs tablet 3 tab PO Q48H Supplement 06/23/22
cholecalciferol (vitamin D3) 125 mcg (5,000 unit) tablet (Vitamin D3) 125 mcg PO QPM Supplement 06/23/22
diphenhydramine HCl 25 mg capsule (Benadryl) 50 mg PO QPM Sleep 06/23/22
folic acid 400 mcg tablet 400 mcg PO QPM Supplement 06/23/22
furosemide 20 mg tablet 20 mg PO HS Fluid Retention/Swelling 06/23/22
losartan 25 mg tablet 25 mg PO QPM Blood Pressure 06/23/22
primidone 50 mg tablet 50 mg PO DAILY Neurological Condition 06/23/22
primidone 50 mg tablet 100 mg PO QPM Neurological Condition 06/23/22
rivaroxaban 20 mg tablet (Xarelto) 20 mg PO HS Blood Clot Prevention/Tx 06/23/22
thiamine HCl (vitamin B1) 100 mg tablet 100 mg PO QPM Supplement 06/23/22
tramadol 50 mg tablet 50 mg PO DAILYPRN PRN PAIN 06/23/22
vitamin B complex 1 tab PO QPM Supplement 06/23/22
multivitamin 1 tab PO QPM Supplement 10/20/23
trimethoprim 100 mg tablet 100 mg PO QPM Infection 11/01/23
gabapentin 300 mg capsule 600 mg (2 x 300 mg) PO DAILY #30 caps 01/31/24
gabapentin 400 mg capsule 1,200 mg (3 x 400 mg) PO QPM #30 caps 01/31/24
metoprolol succinate 25 mg tablet,extended release 24 hr (Toprol XL) 25 mg PO BID Arrhythmia #60 tabs 01/31/24
cyclosporine 0.05 % eye drops in a dropperette (Restasis) 1 drp ophthalmic (eye) Q12H 07/08/24
omeprazole 20 mg tablet,delayed release 20 mg PO DAILY 07/08/24
Review of Systems
-
History Source: Patient
Constitutional: Reports Chills
EENT: Reports No Symptoms
Respiratory: Reports No Symptoms
Cardiac: Reports No Symptoms
Abdomen/GI: Reports Abdominal Pain
: Reports Difficulty Voiding
Musculoskeletal: Reports No Symptoms
Skin: Reports Rash
Neurological: Reports No Symptoms
Endocrine: Reports No Symptoms
Hematologic/Lymphatic: Reports No Symptoms
Psych: Reports No Symptoms
Physical Exam
Vital Signs
Vital Signs
Temp Pulse Resp BP Pulse Ox
98.3 F 64 16 119/60 95
07/10/24 00:15 07/10/24 00:42 07/10/24 00:42 07/10/24 00:42 07/10/24 00:42
Physical Exam
General: Well Developed, Well Nourished and No Apparent Distress
HEENT: NormoCephalic, Anicteric, Moist mucous membranes, Atraumatic and PERRLA
Respiratory: Clear
Cardiac: S1/S2 and Regular Rhythm
Breast: Deferred by me
GI: Soft, Non Tender, Non Distended, Normal Bowel Sounds and Other
Rectal: Deferred by Provider
Genito-urinary: Deferred by me
Musculoskeletal: No Clubbing, No Cyanosis, No Edema and Other (Right groin hematoma with ecchymosis extending into the lower vaginal region. About 10 cm in length.)
Skin: Warm
Neuro: AO x 3
Hematologic/Lymphatic: No Lymphadenopathy
Psych: Calm
Laboratory Results
-
07/10/24 01:15
07/10/24 01:15
Laboratory Results
PT 23.5 Sec (11.4-14.6) H 07/10/24 01:15
INR 2.11 07/10/24 01:15
APTT 42.4 Sec (23.4-35.0) H 07/10/24 01:15
Total Bilirubin 0.4 mg/dl (0.2-1.3) 07/10/24 01:15
AST 42 U/L (14-36) H 07/10/24 01:15
ALT 21 U/L (0-35) 07/10/24 01:15
Alkaline Phosphatase 49 U/L (38-126) 07/10/24 01:15
Data Reviewed
-
CT Scan: Report Reviewed by me
Lab Data: Labs Reviewed by me
Old Records: Reviewed
Impression/Plan
-
IMPRESSION:
74-year-old female with past medical history of atrial fibrillation with currently on anticoagulation with Xarelto comes to the emergency department with right groin hematoma and urinary retention 1 day after with catheter-based ablation with access
to the right groin. She has a moderate hematoma but is hemodynamically stable. There is a pseudoaneurysm 8 x 4 mm adjacent to the hematoma. No extravasation noted. About a 3 point drop in hemoglobin on labs.
PLAN:
1. Hematoma - Hematoma 2/2 groin access and anticoagulation for afib. Non-life threatening bleeding.
- admit to telemetry
- type and screen
- h/h q 8
- if dropping may repeat image
- hold Xarelto
- hold aspirin, no ac for dvt ppx for now
- vascular surgery notified -> recommend IR consult to inject pseudoaneurysm. IR consulted.
- npo
2. Urinary retention -- likely secondary to hematoma or uti. s/p urinary catheter insertion
- treat infection
- voiding trial once h/h stabilized
3. UTI - mild dysuria, retention and +++ U/A. spent only one day in the hospital and not overnight.
- urine culture
- ceftriaxone.
- reports always getting yeast infection with uti abx so has always been given pre-emptive diflucan.
4. AFIB- Normal pulse and regular rhythm s/p catheter ablation
- holding xarelto
- metoprolol tuccinate 25 bid
5. HTN
- restart losartan tomorrow, hold today
DVT PPX - scd
Code Status - full code
[2024-07-10] MEDS: DIFLUCAN 150 MG PO (04:29)
--- NOTE | 2024-07-10 06:17 | PTCARENOTE ---
pt is aaox3, has right groin hematoma- ecchymotic, edema. + Doppler pedal and groin pulses. pt has no c/o pain at this time. pt is npo. surgical consult in am. pt is oriented to room w/ call padgett in reach
--- NOTE | 2024-07-10 07:46 | W.PN.UPDATE ---
Update Note
Progress Note Update
Seen and examined with [employer] ARCHITECT. Full consultation to follow. Briefly 72-year-old female with atrial fibrillation underwent cardiac ablation for atrial fibrillation 2 days ago. Notes yesterday was having difficulty with discomfort in her right groin as
well as difficulty voiding. Therefore presented to the emergency room. CT scan imaging demonstrates pseudoaneurysm in the right groin. Patient denies any prior vascular interventions in the legs. On exam/abdomen is soft, obese, nondistended,
nontender. No flank tenderness or lower back tenderness. Right groin without any large obvious hematoma. There is significant ecchymosis throughout. No large pulsatile mass. Feet are warm with palpable pedal pulses bilaterally.
CT angiogram reviewed. Confirms long neck, thin neck small pseudoaneurysm. Mild surrounding hematoma.
Plan/pseudoaneurysm right common femoral artery. Long neck, thin neck. Hemodynamically stable. Mild hematoma surrounding. Recommend IR for thrombin injection. We have contacted interventional radiology as well to alert them. Discussed with
patient if unable to inject, then would consider surgical option.
--- NOTE | 2024-07-10 08:00 | CON.VAS ---
Consultation
Consultation Request
Date/Time Consultation Performed: 07/10/24 0745
Requesting Provider: Hospitalist
Performing Provider: Mariza Hardin NP-C for Anselmo Jung MD
Reason for Consultation: pseudoaneurysm
Medical History
-
Chief Complaint: Right groin swelling
History of Present Illness:
This is a 72-year-old female with significant past medical history for atrial fibrillation, hypertension, breast cancer, and GERD who underwent cardiac ablation for atrial fibrillation on 07/08/24. She notes yesterday she began having difficulty with
discomfort in her right groin as well as difficulty voiding. Therefore presented to the emergency room. CT scan imaging demonstrates pseudoaneurysm in the right groin, prompting vascular consultation. Patient denies any prior vascular
interventions in the legs.
Past Medical History
Past Medical History: Arrhythmias (Atrial fibrillation status post cath ablation), Cancer (Breast cancer status post lumpectomy), GERD and HTN
Past Surgical History: None
Social History
Tobacco: Former Smoker
Alcohol: None
Drug: None
Living: With Family
Allergies / Home Medications
Allergy/AdvReac Type Severity Reaction Status Date / Time
codeine Allergy VAGINAL Verified 07/10/24 00:17
[From Tylenol-Codeine #3] IRRITATION
sulfamethoxazole Allergy mouth sores Verified 07/10/24 00:17
[From Bactrim]
trimethoprim [From Bactrim] Allergy mouth sores Verified 07/10/24 00:17
�Medication �Instructions �Recorded �Confirmed �Type
Premarin 1 dose vaginal WESA Hormonal Agent 06/23/22 07/10/24 History
ojkiizh-eektugmrq-vhzj tablet 3 tab PO Q48H Supplement 06/23/22 07/10/24 History
cholecalciferol (vitamin D3) 125 125 mcg PO QPM Supplement 06/23/22 07/10/24 History
mcg (5,000 unit) tablet (Vitamin
D3)
diphenhydramine HCl 25 mg capsule 50 mg PO QPM Sleep 06/23/22 07/10/24 History
(Benadryl)
folic acid 400 mcg tablet 400 mcg PO QPM Supplement 06/23/22 07/10/24 History
furosemide 20 mg tablet 20 mg PO HS Fluid 06/23/22 07/10/24 History
Retention/Swelling
losartan 25 mg tablet 25 mg PO QPM Blood Pressure 06/23/22 07/10/24 History
primidone 50 mg tablet 50 mg PO DAILY Neurological 06/23/22 07/10/24 History
Condition
primidone 50 mg tablet 100 mg PO QPM Neurological 06/23/22 07/10/24 History
Condition
rivaroxaban 20 mg tablet (Xarelto) 20 mg PO HS Blood Clot 06/23/22 07/10/24 History
Prevention/Tx
thiamine HCl (vitamin B1) 100 mg 100 mg PO QPM Supplement 06/23/22 07/10/24 History
tablet
tramadol 50 mg tablet 50 mg PO DAILYPRN PRN PAIN 06/23/22 07/10/24 History
vitamin B complex 1 tab PO QPM Supplement 06/23/22 07/10/24 History
multivitamin 1 tab PO QPM Supplement 10/20/23 07/10/24 History
trimethoprim 100 mg tablet 100 mg PO QPM Infection 11/01/23 07/10/24 History
gabapentin 300 mg capsule 600 mg (2 x 300 mg) PO DAILY #30 01/31/24 07/10/24 Rx
caps
gabapentin 400 mg capsule 1,200 mg (3 x 400 mg) PO QPM #30 01/31/24 07/10/24 Rx
caps
metoprolol succinate 25 mg 25 mg PO BID Arrhythmia #60 tabs 01/31/24 07/10/24 Rx
tablet,extended release 24 hr
(Toprol XL)
cyclosporine 0.05 % eye drops in a 1 drp ophthalmic (eye) Q12H 07/08/24 07/10/24 History
dropperette (Restasis)
omeprazole 20 mg tablet,delayed 20 mg PO DAILY 07/08/24 07/10/24 History
release
Review of Systems
-
History Source: Patient
Constitutional: Reports No Symptoms
EENT: Reports No Symptoms
Respiratory: Reports No Symptoms
Cardiac: Reports No Symptoms
Abdomen/GI: Reports Other (right groin swelling, pain, bruising ); Denies Nausea or Vomiting
: Reports Difficulty Voiding
Musculoskeletal: Reports No Symptoms
Skin: Reports No Symptoms
Neurological: Reports No Symptoms
Endocrine: Reports No Symptoms
Physical Exam
Vital Signs
Temp Pulse Resp BP Pulse Ox
98.5 F 61 20 128/53 99
07/10/24 14:25 07/10/24 14:25 07/10/24 14:25 07/10/24 14:25 07/10/24 14:25
Lab Results
07/10/24 01:15
Physical Exam
General: No Apparent Distress and Comfortable
HEENT: Normocephalic, Anicteric and Atraumatic
Respiratory: Non Labored Respirations
Cardiac: Negative JVD
GI: Soft, Non Tender, Non Distended and Other ( Right groin without any large obvious hematoma. There is significant ecchymosis throughout. No large pulsatile mass.)
Musculoskeletal: No Edema
Skin: Warm, Dry and Other (Feet are warm with palpable pedal pulses bilaterally.)
Neuro: AO x 3
Pulses: Bilateral Femoral: +2 and Right Dorsalis Pedis: +2
Assessment / Plan
-
CT angiogram reviewed. Confirms long neck, thin neck small pseudoaneurysm. Mild surrounding hematoma.
Plan/pseudoaneurysm right common femoral artery. Long neck, thin neck. Hemodynamically stable. Mild hematoma surrounding. Recommend IR for thrombin injection. We have contacted interventional radiology as well to alert them. Discussed with
patient if unable to inject, then would consider surgical option.
[2024-07-10 09:53] LABS: Hematocrit 26.9 % (37.0-47.0); Hemoglobin 9.4 g/dL (12.0-16.0)
--- NOTE | 2024-07-10 10:28 | W.PN.UPDATE ---
Addendum entered and electronically signed by Marlen Zaragoza MD, Resident 07/10/24 11:07:
Acute blood loss anemia exacerbated by xarelto prior to admission
Hgb baseline 12.4, down to 9.8 on admission --> 9.4 on repeat stable from admission
Hold xarelto and pharmaceutical vte ppx
Original Note:
Update Note
Progress Note Update
No complaints this morning. Denies lightheadedness, dizziness, chest pain, shortness of breath, nausea, vomiting, diarrhea, constipation, abdominal pain. NPO currently, otherwise tolerates PO food/liquids without difficulty.
Gen: Resting comfortably in bed, no acute distress. AAOx4
Heart/lungs: RRR. CTAB. Nonlabored breathing.
GI: Bowel sounds present. Abdomen soft, nontender, nondistended.
: Perez in place draining clear yellow urine
MSK: Warm, well perfused. Trace edema bilateral lower extremities
A/P
Hematoma- Hgb 9.8 --> 9.4, stable, continue to trend. S/p vasc surg eval. IR consulted, maintain NPO, trend H&H, hold pharmaceutical vte ppx for now. VTE ppx SCDs
UA consistent with UTI, urine culture pending. Continue ceftriaxone, reassess antibiotics when culture results.
Afib s/p ablation- RRR, hold xarelto
See same day H&P for additional details
--- NOTE | 2024-07-10 12:00 | W.PN.IRAD.PR ---
Procedure Note
-
Right groin pseudoaneurysm thrombin injection performed successfully under US guidance. Nml waveforms R STEMHOLE BORER AND TOPPER and CFV post. US R groin AM to ensure remains thrombosed.
[2024-07-10] MEDS: MYSOLINE 50 MG PO (12:41)
[2024-07-10] MEDS: NEURONTIN 600 MG PO (12:41)
[2024-07-10] MEDS: RESTASIS 0.05% OPHTHALMIC EMULSION 1 DROPS OPHTH ×2 (12:42→20:41)
[2024-07-10] MEDS: PROTONIX 40 MG PO (12:42)
[2024-07-10] MEDS: TOPROL XL 25 MG PO ×2 (12:42→20:25)
--- NOTE | 2024-07-10 12:47 | PTCARENOTE ---
Received patient from IR at 1225. Patient AAOx3, no c/o pain. Right groin dressing CDI, right pedal pulse + with doppler, HOB restriction util 1400. Patient verbalized understanding. Call padgett in reach, HOB at 20 degrees at present.
[2024-07-10] MEDS: STERILE WATER FOR INJECTION 10 ML IV (13:31)
[2024-07-10] MEDS: ROCEPHIN 1000 MG IV (13:31)
--- NOTE | 2024-07-10 15:39 | CM ---
Patient seen bedside, initial assessment completed. Patient currently staying with her sister in a multiple story home with a stairglide, two steps to enter. Patient otherwise lives independently in a ranch style home. Patient uses a walker for
ambulation, denies other DME. Patient denies VN, reports SNF at [place] at [facility] after 6 day ICU stay. Patient confirms PCP Denia Deng, pharmacy [facility]. Patient confirms prescription coverage. Patient denies needs from CM upon
discharge. CM will continue to follow for all discharge planning needs.
Plan; home no needs likely.
[2024-07-10] MEDS: VITAMIN B1 100 MG PO (18:37)
[2024-07-10] MEDS: MYSOLINE 100 MG PO (18:37)
[2024-07-10] MEDS: FOLVITE 0.4 MG PO (18:37)
[2024-07-10] MEDS: NEURONTIN 1200 MG PO (18:37)
[2024-07-10 19:12] LABS: Hematocrit 26.6 % (37.0-47.0); Hemoglobin 9.3 g/dL (12.0-16.0)
[2024-07-10] MEDS: TYLENOL 650 MG PO (20:31)
[2024-07-10] MEDS: LASIX 20 MG PO (20:41)
[2024-07-10] MEDS: BENADRYL 50 MG PO (22:36)
[2024-07-11 03:20] VITALS: BP 104/58
[2024-07-11 07:50] LABS: Hematocrit 27.9 % (37.0-47.0); Hemoglobin 9.6 g/dL (12.0-16.0); Mean Corp Hgb Conc. 34.4 g/dL (33.0-37.0); Mean Corpuscular Hgb 34.8 pg (27.0-31.0); Mean Corpuscular Volume 101.1 fL (81.0-99.0); Mean Platelet Volume 10.2 fL (7.4-10.4); Platelet Count 212 10^3/uL (130-400); Red Blood Cell Count 2.76 10^6/uL (4.20-5.40); Red Cell Dist. Width 13.3 % (11.5-14.5); White Blood Cell Count 5.9 10^3/uL (4.8-10.8)
[2024-07-11 07:59] VITALS: BP 135/56
[2024-07-11 08:23] LABS: Blood Urea Nitrogen 19 mg/dl (7-17); Calcium 8.5 mg/dl (8.4-10.2); Carbon Dioxide 27 mmol/L (22-30); Chloride 97 mmol/L (98-107); Estimated Creatinine Clearance 63 ml/min; Glucose 83 mg/dl (70-99); Potassium 4.5 mmol/L (3.5-5.1); Sodium 135 mmol/L (135-145); eGFR > 60.00
--- NOTE | 2024-07-11 08:23 | W.PN.HOSP.TC ---
Addendum entered and electronically signed by Jabier Gilliam MD 07/11/24 09:09:
I saw and evaluated the patient. I reviewed the resident�s note and agree with findings and plan as documented in the resident�s note.
Denies shortness of breath. Reports pressure-like retrosternal left-sided chest pain with ambulation from the stretcher to her bed after ultrasound this morning.
Gen: NAD, Awake and alert
Eyes: EOMI, PERRLA, no scleral icterus.
Neck: supple.
CV: RRR, +S1/S2, no m/r/g.
Resp: CTAB, no rales, wheezes, or rhonchi.
Abd: +BS, soft, NT, ND
Skin: No rashes.
Neuro: CN 2-12 intact, non-focal.
Psych: Normal mood and affect.
R groin U/S 07/11/24: Right groin pseudoaneurysm no longer visualized compatible with successful/interval percutaneous thrombin injection. Soft tissue hematoma measures 6.2 x 2.8 x 5.8 cm.
Hematoma and acute blood loss anemia exacerbated by Xarelto:
-Hemoglobin stable
-s/p fibrin injection 07/10/24, successful as evidenced by right groin ultrasound this morning
-appreciate vascular
-Xarelto remains on hold
Exertional chest pain:
-Check ECG
-Trend troponins
-Continue to monitor on telemetry
-Consult cardiology
Possible UTI:
-follow UCx
-cont Rocephin
Total time spent on today's encounter was 50 minutes which included time spent in counseling the patient/family regarding diagnosis and treatment plan as listed above, goals of care, and symptom management. Case was discussed with nursing staff,
specialists, and care coordinators/case management. All labs and imaging personally reviewed by me. Remainder the time spent in detailed review of previous records, lab data, imaging, and other medical provider documentation.
Original Note:
Today's Communication/Plan
-
US pending
Assessment / Plan
Assessment / Plan
74yo F with PMH afib on anticoagulation and recent cardiac ablation 07/08/24, who presented to ED 07/10 for difficulty urinating and bruising of suprapubic/lower abdominal region. She was found to have hematoma associated with recent groin access,
urinary retention, and UTI.
Hematoma
Acute blood loss anemia exacerbated by xarelto prior to admission
- Hgb baseline 12.4, down to 9.8 on admission --> 9.6 today
- Hgb overall stable since admission, not concerning for ongoing hemodynamically significant blood loss
- Hold home xarelto, aspirin; hold pharmaceutical VTE ppx
- S/p vascular surgery evaluation
- S/p IR pseudoaneurysm thrombin injection 07/10
- Repeat US this AM, results pending
Urinary retention
- Perez catheter removed, adequate urine output yesterday
- Voiding spontaneously
- Continue to monitor clinically, bladder scan prn
UTI
- UA consistent with UTI
- Urine culture pending
- Continue ceftriaxone, reassess antibiotics when culture data available
- Was given pre-emptive diflucan given history of recurrent yeast infections
Afib s/p catheter ablation
- Hold home xarelto
- Continue metoprolol succinate 25mg BID
HTN
- Continue home furosemide
- Resume home losartan
Code status: full
VTE ppx: ambulation as tolerated, SCDs
Diet: cholesterol lowering
Dispo planning: anticipate home
Anticipated Discharge: Today
Subjective/Interval History
-
Date of Service: July 11, 2024
Patient unavailable at time of AM rounds. She is at ultrasound.
Objective Data
-
Labs:
Laboratory Results
07/11/24
06:31
WBC 5.9
Hgb 9.6 L
Hct 27.9 L
Plt Count 212
Sodium Pending
Potassium Pending
Chloride Pending
Carbon Dioxide Pending
BUN Pending
Creatinine Pending
Glucose Pending
Calcium Pending
Vital Signs:
Vital Signs
Temp Pulse Resp BP Pulse Ox
97.8 F 66 18 135/56 94
07/11/24 07:59 07/11/24 07:59 07/11/24 07:59 07/11/24 07:59 07/11/24 07:59
I&O
07/10/24 07/11/24 07/12/24
06:59 06:59 06:59
Intake Total 620 / 620
Output Total 1600 / 1600 500 / 500
Balance -1600 / -1600 120 / 120
Data Reviewed
-
Ultrasound: Report Reviewed by me and Discussed with Physician
Labs: Labs Reviewed by me and Discussed with Physician
[2024-07-11] MEDS: NEURONTIN 600 MG PO (09:29)
[2024-07-11] MEDS: PROTONIX 40 MG PO (09:29)
[2024-07-11] MEDS: RESTASIS 0.05% OPHTHALMIC EMULSION 1 DROPS OPHTH ×2 (09:33→21:08)
[2024-07-11] MEDS: MYSOLINE 50 MG PO (09:33)
[2024-07-11] MEDS: TOPROL XL 25 MG PO ×2 (09:34→21:09)
[2024-07-11 09:56] LABS: Troponin I 0.751 ng/ml
--- NOTE | 2024-07-11 10:23 | CON.CAR ---
Addendum entered and electronically signed by Cornelius Almanza MD 07/11/24 13:05:
I saw and examined the patient.
The Meat Smoker's note was reviewed and I agree with the note.
Comment: Briefly, 74-year-old woman with recent PVI here at [place] on 07/08/2024 who presents for evaluation of groin hematoma and was subsequently found to have pseudoaneurysm.Patient underwent thrombin injection for treatment of pseudoaneurysm
and post procedurally she had a short episode of chest discomfort for which we were asked to evaluate the patient.
Patient is currently resting comfortably and is chest pain-free
ECG was nonischemic appearing
Initial troponin was elevated which I suspect is nonischemic myocardial injury troponin elevation related to recent ablation, would repeat to ensure that this is downtrending
For completeness we will arrange for transthoracic echocardiogram to evaluate for segmental wall motion abnormality or pericardial effusion
In regards to her hematoma, the site appears ecchymotic, hemoglobin has down trended, would repeat hemoglobin in a.m. to ensure that it is stabilized
Continue Xarelto given recent ablation
We will continue to follow
Original Note:
Consultation
Consultation Request
Date/Time Consultation Requested: 07/11/24
Date/Time Consultation Performed: 07/11/24
Requesting Provider: Dr. Gilliam
Performing Provider: Dr. Almanza
Reason for Consultation: Chest pain, recent PVI with right groin pseudoaneurysm
Medical History
-
History of Present Illness:
Patient came to [facility] very early on Monday with increased groin bruising and was admitted with right groin pseudoaneurysm and cardiology is now consulted for chest pain. Patient has a h/o paroxysmal Afib. Patient was in for sotalol loading
01/2024, but it was stopped months later due to ineffectiveness and side effects. Patient was then placed on amiodarone and plan was made for ablation and PVI was performed 07/08/24. Patient was discharged to home same day and says that she felt
swollen in her groin, but not in pain. She then had increasing difficulty passing urine and did a visual inspection of her groin and noticed ecchymosis from her groin to the suprapubic area and she came to [facility] very early Monday morning. Patient
had CT in ER that showed right groin hematoma and small pseudoaneurysm. Patient then had thrombin injection in IR later on Monday. Hgb was 12.4 on 07/08/24 and then 9.8 on 07/10/24 and is stable at 9.6 on 07/11/24. No pain in the groin. Patient had
u/s this morning that showed the right groin pseudoaneurysm was no longer visualized confirming successful thrombin injection from yesterday. Upon returning to her room patient ambulated from the hallway to her bed and described chest pain in her
right shoulder without radiation. No SOB. Pain lasted 2-3 minutes and resolved without specific intervention. Pain has not recurred despite repeated trips to the bathroom and ambulating in her room. She has never had a pain like that before.
PMH:
s/p PVI 07/08/24
Paroxysmal Afib
s/p PVI with additional AF ablation and mapping of second LA tachycardia 07/01/22
s/p PVI 11/01/22
previous sotalol therapy that was stopped due to ineffectiveness 2023
s/p PVI 07/08/24
HTN
Hyperlipidemia.
Gastroesophageal reflux disease.
Insomnia.
Breast cancer 2022, stage IB, status post right lumpectomy with lymph node dissection and radiation.
Remote tobacco abuse.
Spinal stenosis, degenerative disc disease with peripheral neuropathy.
Ambulatory dysfunction.
Tremor.
Osteoarthritis.
Obesity BMI 33.61.
Past Medical History
Past Medical History: Other (in HPI)
Past Surgical History: Cardiac (PVI 07/01/22, PVI 11/01/22, PVI 07/08/24), Gynecological (hysterecomy) and Orthopedic
Social History
Tobacco: Former Smoker
Alcohol: Occasional
Drug: None
Personal:
Living: Alone (she lives in [place], [place], but comes and stays with her sister in [place] when she needs care)
Family History
Family History: CAD
Allergies / Home Medications
Allergy/AdvReac Type Severity Reaction Status Date / Time
codeine Allergy VAGINAL Verified 07/10/24 00:17
[From Tylenol-Codeine #3] IRRITATION
sulfamethoxazole Allergy mouth sores Verified 07/10/24 00:17
[From Bactrim]
trimethoprim [From Bactrim] Allergy mouth sores Verified 07/10/24 00:17
�Medication �Instructions �Recorded �Confirmed �Type
Premarin 1 dose vaginal WESA Hormonal Agent 06/23/22 07/10/24 History
pgwbwya-vnhadssdb-rmho tablet 3 tab PO Q48H Supplement 06/23/22 07/10/24 History
cholecalciferol (vitamin D3) 125 125 mcg PO QPM Supplement 06/23/22 07/10/24 History
mcg (5,000 unit) tablet (Vitamin
D3)
diphenhydramine HCl 25 mg capsule 50 mg PO QPM Sleep 06/23/22 07/10/24 History
(Benadryl)
folic acid 400 mcg tablet 400 mcg PO QPM Supplement 06/23/22 07/10/24 History
furosemide 20 mg tablet 20 mg PO HS Fluid 06/23/22 07/10/24 History
Retention/Swelling
losartan 25 mg tablet 25 mg PO QPM Blood Pressure 06/23/22 07/10/24 History
primidone 50 mg tablet 50 mg PO DAILY Neurological 06/23/22 07/10/24 History
Condition
primidone 50 mg tablet 100 mg PO QPM Neurological 06/23/22 07/10/24 History
Condition
rivaroxaban 20 mg tablet (Xarelto) 20 mg PO HS Blood Clot 06/23/22 07/10/24 History
Prevention/Tx
thiamine HCl (vitamin B1) 100 mg 100 mg PO QPM Supplement 06/23/22 07/10/24 History
tablet
tramadol 50 mg tablet 50 mg PO DAILYPRN PRN PAIN 06/23/22 07/10/24 History
vitamin B complex 1 tab PO QPM Supplement 06/23/22 07/10/24 History
multivitamin 1 tab PO QPM Supplement 10/20/23 07/10/24 History
trimethoprim 100 mg tablet 100 mg PO QPM Infection 11/01/23 07/10/24 History
gabapentin 300 mg capsule 600 mg (2 x 300 mg) PO DAILY #30 01/31/24 07/10/24 Rx
caps
gabapentin 400 mg capsule 1,200 mg (3 x 400 mg) PO QPM #30 01/31/24 07/10/24 Rx
caps
metoprolol succinate 25 mg 25 mg PO BID Arrhythmia #60 tabs 01/31/24 07/10/24 Rx
tablet,extended release 24 hr
(Toprol XL)
cyclosporine 0.05 % eye drops in a 1 drp ophthalmic (eye) Q12H 07/08/24 07/10/24 History
dropperette (Restasis)
omeprazole 20 mg tablet,delayed 20 mg PO DAILY 07/08/24 07/10/24 History
release
Review of Systems
-
History Source: Patient
All other systems: Negative unless noted
Physical Exam
Vital Signs
Temp Pulse Resp BP Pulse Ox
97.8 F 66 18 135/56 94
07/11/24 07:59 07/11/24 09:34 07/11/24 07:59 07/11/24 09:34 07/11/24 07:59
GEN: NAD. AAOx3
HEENT: EOMI, MMM
LUNGS: CTA B/L, no wheezes or rales
CV: Reg, S1/S2, no murmur
ABD: soft, BS+, NT, ND
EXT: Right groin ecchymosis from flank to suprapubic that is soft and nontender. No clubbing, cyanosis, lesions or edema B/L.
NEURO: Gross non-focal
SKIN: Warm, dry and pink. No rash
Lab Results
07/11/24 06:31
07/11/24 06:31
Troponin I 0.751 ng/ml H* 07/11/24 09:20
Impression / Plan
-
PCP: Dr. Alvarez
Cardiology: primary fitness worker closer to home and then sees Dr. Mauricio Iniguez locally for EP
Impression:
Chest pain
Elevated Troponin
Admitted with right groin pseudoaneurysm 07/10/24
s/p thrombin injection in IR 07/10/24
s/p PVI 07/08/24
Acute blood loss anemia
Paroxysmal Afib
s/p PVI with additional AF ablation and mapping of second LA tachycardia 07/01/22
s/p PVI 11/01/22
previous sotalol therapy that was stopped due to ineffectiveness 2023
s/p PVI 07/08/24
HTN
Hyperlipidemia.
Gastroesophageal reflux disease.
Insomnia.
Breast cancer 2022, stage IB, status post right lumpectomy with lymph node dissection and radiation.
Remote tobacco abuse.
Spinal stenosis, degenerative disc disease with peripheral neuropathy.
Ambulatory dysfunction.
Tremor.
Osteoarthritis.
Obesity BMI 33.61.
Echo 07/11/24: Study pending
Plan:
-Patient came to [facility] very early on Monday with increased groin bruising and was admitted with right groin pseudoaneurysm and cardiology is now consulted for chest pain. Patient has a h/o paroxysmal Afib. Patient was in for sotalol loading
01/2024, but it was stopped months later due to ineffectiveness and side effects. Patient was then placed on amiodarone and plan was made for ablation and PVI was performed 07/08/24. Patient was discharged to home same day and says that she felt
swollen in her groin, but not in pain. She then had increasing difficulty passing urine and did a visual inspection of her groin and noticed ecchymosis from her groin to the suprapubic area and she came to [facility] very early Monday morning. Patient
had CT in ER that showed right groin hematoma and small pseudoaneurysm. Patient then had thrombin injection in IR later on Monday. Hgb was 12.4 on 07/08/24 and then 9.8 on 07/10/24 and is stable at 9.6 on 07/11/24. No pain in the groin. Patient had
u/s this morning that showed the right groin pseudoaneurysm was no longer visualized confirming successful thrombin injection from yesterday. Upon returning to her room patient ambulated from the hallway to her bed and described chest pain in her
right shoulder without radiation. No SOB. Pain lasted 2-3 minutes and resolved without specific intervention. Pain has not recurred despite repeated trips to the bathroom and ambulating in her room. She has never had a pain like that before.
-ECG reviewed by me shows SR and no acute ischemic changes.
-Initial Troponin elevated at 0.751 and this could be due to recent ablation. Repeat Troponin scheduled for 1444.
-Check echo to exclude pericardial effusion
-Remains in SR following most recent PVI 07/08/24. Cont Toprol XL 25 mg BID
-Right groin pseudoaneurysm treated with thrombin injection on day of admission and pseudoaneurysm remains thrombosed on repeat u/s this morning. Soft hematoma noted.
-Hgb down due to acute blood loss anemia. No need for transfusion. Patient will start iron supplements at home.
-Usual outpatient dose of Xarelto 20 mg daily has been continued.
-Outpatient dose of Lasix 20 mg daily has been continued. Weight is stable compared to last admission in January.
[2024-07-11 12:09] VITALS: BP 127/64
[2024-07-11] MEDS: STERILE WATER FOR INJECTION 10 ML IV (12:57)
[2024-07-11] MEDS: ROCEPHIN 1000 MG IV (12:57)
[2024-07-11 16:03] VITALS: BP 113/57
[2024-07-11 17:19] LABS: Troponin I 0.419 ng/ml
[2024-07-11] MEDS: VITAMIN B1 100 MG PO (17:39)
[2024-07-11] MEDS: NEURONTIN 1200 MG PO (17:39)
[2024-07-11] MEDS: COZAAR 25 MG PO (17:40)
[2024-07-11] MEDS: FOLVITE 0.4 MG PO (17:40)
[2024-07-11] MEDS: THERAGRAN 1 TABLET PO (17:41)
[2024-07-11] MEDS: B COMPLEX w/VITAMIN C 1 CAPLET PO (17:42)
[2024-07-11] MEDS: BENADRYL PO ×2 (17:42→20:09)
[2024-07-11] MEDS: MYSOLINE 100 MG PO (17:43)
[2024-07-11] MEDS: VITAMIN D3 (cholecalciferol) 125 MCG PO (17:44)
[2024-07-11 19:30] VITALS: BP 131/71
[2024-07-11] MEDS: LASIX 20 MG PO (21:09)
[2024-07-11] MEDS: BENADRYL 50 MG PO (21:09)
[2024-07-11] MEDS: XARELTO 20 MG PO (21:10)
[2024-07-11 23:13] LABS: Troponin I 0.358 ng/ml
[2024-07-11 23:55] VITALS: BP 139/63
[2024-07-12 03:08] VITALS: BP 144/70
[2024-07-12 03:28] LABS: Troponin I 0.336 ng/ml
[2024-07-12 07:42] VITALS: BP 144/70
[2024-07-12 07:42] LABS: Hematocrit 28.1 % (37.0-47.0); Hemoglobin 10.1 g/dL (12.0-16.0); Mean Corp Hgb Conc. 35.9 g/dL (33.0-37.0); Mean Corpuscular Hgb 35.6 pg (27.0-31.0); Mean Corpuscular Volume 98.9 fL (81.0-99.0); Mean Platelet Volume 9.6 fL (7.4-10.4); Platelet Count 196 10^3/uL (130-400); Red Blood Cell Count 2.84 10^6/uL (4.20-5.40); White Blood Cell Count 5.3 10^3/uL (4.8-10.8)
[2024-07-12 08:26] LABS: Blood Urea Nitrogen 18 mg/dl (7-17); Calcium 8.7 mg/dl (8.4-10.2); Carbon Dioxide 26 mmol/L (22-30); Chloride 98 mmol/L (98-107); Estimated Creatinine Clearance 71 ml/min; Glucose 94 mg/dl (70-99); Potassium 4.3 mmol/L (3.5-5.1); Sodium 135 mmol/L (135-145); eGFR > 60.00
--- NOTE | 2024-07-12 08:28 | W.PN.HOSP.TC ---
Addendum entered and electronically signed by Vinny Walter MD 07/12/24 14:41:
I personally performed a history and physical exam of the patient and discussed management with the resident. I reviewed the resident's note and agree with the documented findings and plan of care HPI/CC
Seen and examined earlier today. Late documentation.
Patient was feeling better and anxious to go home
Cardiovascular system S1-S2 appreciated
Abdomen soft and nontender
Right inguinal area ecchymosis stable nontender
Right dorsalis pedis pulses felt
Right inguinal pseudoaneurysm postcatheterization-IR intervention with thrombin injection hemoglobin stable
Acute blood loss anemia
Iron levels and B12 adequate
Urinary retention required a Mcdonnell catheter no voiding
Urine cultures negative
Elevated troponin secondary to PVI discussed with cardiology. Stable for discharge
Echo noted-EF over 75% normal LV size. Mild concentric LVH. Stage III diastolic dysfunction. Mild MR. Mild TR. Pulmonary artery pressure 38 mmHg. IVC is normal size and normal variation with respiration
Discharge coordination time more than 30 minutes.
Original Note:
Today's Communication/Plan
-
Discharge home today
Assessment / Plan
Assessment / Plan
74yo F with PMH afib on anticoagulation and recent cardiac ablation 07/08/24, who presented to ED 07/10 for difficulty urinating and bruising of suprapubic/lower abdominal region. She was found to have hematoma associated with recent groin access,
urinary retention, and UTI.
Soft tissue hematoma, stable
Acute blood loss anemia exacerbated by xarelto prior to admission
R groin pseudoaneurysm s/p percutaneous thrombin injection - resolved
- Hgb baseline 12.4, down to 9.8 on admission --> 10.1 today
- Hgb overall stable since admission, not concerning for ongoing blood loss
- S/p vascular surgery evaluation
- S/p IR pseudoaneurysm thrombin injection 07/10
- US yesterday demonstrating resolved pseudoaneurysm; discussed with IR and cardiology, home Xarelto resumed
- Stable for discharge home
Urinary retention
- Required mcdonnell catheter at admission, adequate urine output, and mcdonnell previously removed
- Voiding spontaneously
- Continue to monitor clinically, bladder scan prn
UTI
- UA consistent with UTI
- S/p ceftriaxone x2 days, cefepime x1, preemptive diflucan given h/o recurrent yeast infections
- Urine culture 07/10 shows no significant growth (final result)
- Discontinue antibiotics
Afib s/p PVI 07/08/24
- Continue home xarelto
- Continue metoprolol succinate 25mg BID
Elevated troponin
- S/p cardiology consult for chest pain/pressure and elevated troponin
- Serum troponin elevated, trending down x3
- EKG nonischemic appearing
- Suspect elevated troponin due to recent cardiac ablation not ACS. Reassured by downtrending troponin and resolution of chest pain/pressure
- No additional intervention indicated
HTN
- Continue home furosemide and losartan
Code status: full
VTE ppx: ambulation as tolerated, xarelto, SCDs
Diet: cholesterol lowering
Dispo planning: anticipate home today
Anticipated Discharge: Today
Subjective/Interval History
-
Date of Service: July 12, 2024
No acute events overnight. Feels well and desires discharge today. Pain in right groin is improved. Denies lightheadedness, dizziness, chest pain, shortness of breath, nausea, vomiting, diarrhea. Last bowel movement was 6 days ago. Tolerating PO.
Ambulating as tolerated.
Objective Data
-
Labs:
Laboratory Results
07/12/24
07:18
WBC 5.3
Hgb 10.1 L
Hct 28.1 L
Plt Count 196
Sodium 135
Potassium 4.3
Chloride 98
Carbon Dioxide 26
BUN 18 H
Creatinine 0.8
Glucose 94
Calcium 8.7
LAB Results
07/11/24 07/11/24 07/11/24
09:20 16:42 22:40
Troponin I 0.751 H* 0.419 H* D 0.358 H*
07/12/24
02:44
Troponin I 0.336 H*
Vital Signs:
Vital Signs
Temp Pulse Resp BP Pulse Ox
98.3 F 63 16 144/70 96
07/12/24 03:08 07/12/24 03:08 07/12/24 03:08 07/12/24 03:08 07/12/24 03:08
I&O
07/11/24 07/12/24 07/13/24
06:59 06:59 06:59
Intake Total 620 / 620
Output Total 500 / 500 700 / 700
Balance 120 / 120 -700 / -700
Review of Systems
-
History Source: Patient
All other systems: Reviewed and negative
Physical Exam
-
General: Well Developed, Well Nourished, No Apparent Distress, Comfortable, Conversant and Obese
HEENT: Normocephalic and Atraumatic
Respiratory: Non Labored Respirations
Cardiac: Regular Rhythm
GI: Soft, Nontender and Nondistended
Musculoskeletal: No Cyanosis and No Edema
Skin: Warm, Dry and Other (ecchymosis mildly tender present on right groin)
Neuro: Awake, Alert and Oriented
Psych: Calm and Intact Judgement/Insight
Data Reviewed
-
CT Scan: Report Reviewed by me and Discussed with Physician
Ultrasound: Report Reviewed by me, Discussed with Physician and Discussed with Patient
Labs: Labs Reviewed by me, Discussed with Physician and Discussed with Patient
--- NOTE | 2024-07-12 09:09 | W.PN.CARDCBS ---
Addendum entered and electronically signed by Elizabeth Morris DO 07/12/24 18:19:
I saw and examined the patient.
The Milk And Cream Grader's note was reviewed and I agree with the note.
Comment: Patient seen and examined overall feeling better with some mild tenderness of the right groin. Ambulating without assistance and lives with her sister.
Right groin with ecchymosis without active bleeding or hematoma.
Presented with increased groin bruising and right groin pseudoaneurysm following A-fib PVI on July 08, 2024 status post thrombin injection in IR 07/10/2024. Hemoglobin and groin stable. Remains in sinus rhythm. Continue Xarelto. Activity
restrictions reviewed with understanding. Will arrange for outpatient cardiac follow-up. Stable for discharge home.
Original Note:
Today's Communication / Plan
-
Stable for discharge.
Continue Xarelto 20mg daily, Toprol 25mg BID, losartan 25mg daily, and lasix 20mg daily.
Follow up arranged
Impression / Plan
-
PCP: Dr. Alvarez
Cardiology: primary ironworker helper shop closer to home and then sees Dr. Mauricio Iniguez locally for EP
Impression:
Chest pain
Nonischemic myocardial injury
Admitted with right groin pseudoaneurysm 07/10/24
s/p thrombin injection in IR 07/10/24
s/p PVI 07/08/24
Acute blood loss anemia
Paroxysmal Afib
s/p PVI with additional AF ablation and mapping of second LA tachycardia 07/01/22
s/p PVI 11/01/22
previous sotalol therapy that was stopped due to ineffectiveness 2023
s/p PVI 07/08/24
HTN
Hyperlipidemia.
Gastroesophageal reflux disease.
Insomnia.
Breast cancer 2022, stage IB, status post right lumpectomy with lymph node dissection and radiation.
Remote tobacco abuse.
Spinal stenosis, degenerative disc disease with peripheral neuropathy.
Ambulatory dysfunction.
Tremor.
Osteoarthritis.
Obesity BMI 33.61.
Echo 07/11/24: EF 75%, stage III diastolic dysfunction, mild MR, mild TR, estimated PAP 38 mmHg
Plan:
-Presented with increased groin brusing and was admitted with R groin pseudoaneurysm. Underwent thrombin injection in IR 07/10.
-Hgb stable this AM at 10.1.
-Cardiology evaluated patient as she had episode of chest pain/ right shoulder pain which lasted for approx 2 minutes. No recurrence.
-Elevated troponin noted at 0.751, trending down thereafter, suspect nonischemic myocardial injury in the setting of recent ablation.
-ECG stable without any acute ischemic changes noted.
-Echo 07/11 stable with preserved EF and no WMA or pericardial effusion.
-Remains in SR following most recent PVI 07/08/24. Cont Toprol XL 25 mg BID
-Continue Xarelto 20 mg daily.
-Weight stable. Continue lasix 20mg daily.
-Follow up arranged.
HPI: Patient came to [facility] very early on Monday with increased groin bruising and was admitted with right groin pseudoaneurysm and cardiology is now consulted for chest pain. Patient has a h/o paroxysmal Afib. Patient was in for sotalol loading
01/2024, but it was stopped months later due to ineffectiveness and side effects. Patient was then placed on amiodarone and plan was made for ablation and PVI was performed 07/08/24. Patient was discharged to home same day and says that she felt
swollen in her groin, but not in pain. She then had increasing difficulty passing urine and did a visual inspection of her groin and noticed ecchymosis from her groin to the suprapubic area and she came to [facility] very early Monday morning. Patient
had CT in ER that showed right groin hematoma and small pseudoaneurysm. Patient then had thrombin injection in IR later on Monday. Hgb was 12.4 on 07/08/24 and then 9.8 on 07/10/24 and is stable at 9.6 on 07/11/24. No pain in the groin. Patient had
u/s this morning that showed the right groin pseudoaneurysm was no longer visualized confirming successful thrombin injection from yesterday. Upon returning to her room patient ambulated from the hallway to her bed and described chest pain in her
right shoulder without radiation. No SOB. Pain lasted 2-3 minutes and resolved without specific intervention. Pain has not recurred despite repeated trips to the bathroom and ambulating in her room. She has never had a pain like that before.
Progress Note - Valet Parking Attendant
Subjective
Date of Service: July 12, 2024
No complaints. Feeling well this AM.
Objective
Labs:
07/12/24 07:18
07/12/24 07:18
Labs
Hgb 10.1 g/dL (12.0-16.0) L 07/12/24 07:18
Hct 28.1 % (37.0-47.0) L 07/12/24 07:18
Plt Count 196 10^3/uL (130-400) 07/12/24 07:18
PT 23.5 Sec (11.4-14.6) H 07/10/24 01:15
INR 2.11 07/10/24 01:15
APTT 42.4 Sec (23.4-35.0) H 07/10/24 01:15
Sodium 135 mmol/L (135-145) 07/12/24 07:18
Potassium 4.3 mmol/L (3.5-5.1) 07/12/24 07:18
BUN 18 mg/dl (7-17) H 07/12/24 07:18
Creatinine 0.8 mg/dL (0.6-1.0) 07/12/24 07:18
Glucose 94 mg/dl (70-99) 07/12/24 07:18
Troponins
07/11/24 07/11/24 07/11/24
09:20 16:42 22:40
Troponin I 0.751 H* 0.419 H* D 0.358 H*
07/12/24
02:44
Troponin I 0.336 H*
Vital Signs and I&O:
Vital Signs
Temp Pulse Resp BP Pulse Ox
97.5 F 62 18 144/70 93
07/12/24 07:42 07/12/24 07:42 07/12/24 07:42 07/12/24 07:42 07/12/24 07:42
Vital Signs
Temp Pulse Resp BP Pulse Ox
97.5 F 62 18 144/70 93
07/12/24 07:42 07/12/24 07:42 07/12/24 07:42 07/12/24 07:42 07/12/24 07:42
Intake & Output
07/10/24 07/11/24 07/12/24 07/13/24
06:59 06:59 06:59 06:59
Intake Total 620 / 620
Output Total 1600 / 1600 500 / 500 700 / 700
Balance -1600 / -1600 120 / 120 -700 / -700
Physical Exam
Physical Exam
GEN: NAD. AAOx3
HEENT: EOMI, MMM
LUNGS: CTA B/L, no wheezes or rales
CV: Reg, S1/S2, no murmur
EXT: R groin ecchymosis. No clubbing, cyanosis, or edema B/L.
NEURO: Gross non-focal
SKIN: Warm, dry and pink. No rash
[2024-07-12] MEDS: RESTASIS 0.05% OPHTHALMIC EMULSION 1 DROPS OPHTH (10:36)
[2024-07-12] MEDS: NEURONTIN 600 MG PO (10:37)
[2024-07-12] MEDS: TOPROL XL 25 MG PO (10:37)
[2024-07-12] MEDS: PROTONIX 40 MG PO (10:37)
[2024-07-12] MEDS: MYSOLINE 50 MG PO (10:39)
[2024-07-12 11:00] VITALS: BP 127/70
[2024-07-12 12:13] LABS: Iron 98 ug/dl (37-170)
[2024-07-12 12:22] LABS: Percent Saturation 44 % (20-50); Total Iron Binding Capacity 218 ug/dl (265-497)
[2024-07-12 12:54] LABS: Vitamin B12 > 1000 pg/ml (239-931)
--- NOTE | 2024-07-12 14:44 | CM ---
CM reviewed chart, patient for discharge today. Patient seen bedside, reports she has transportation home. Denies needs upon discharge. IMM reviewed, signed, placed in chart. CM will continue to follow for all discharge planning needs.
Plan; home no needs.
[2024-07-12 15:03] VITALS: BP 164/92
--- NOTE | 2024-07-12 15:28 | W.DCSUMMARY ---
Discharge Summary
Discharge Data
Date of Admission: 07/10/24
Date of Discharge: 07/12/24
-
Pending Results: No
Hospital Course
Discharging Physician : Dr. Zaragoza, Dr. Walter
Disposition : Home
Primary care physician : Unknown
Principal Discharge diagnosis : Soft tissue hematoma and pseudoaneurysm, atrial fibrillation s/p pulmonary vein isolation 07/08/24, acute blood loss anemia, urinary retention, elevated troponin secondary to nonischemic myocardial injury
Chronic Discharge diagnosis : Hypertension, hyperlipidemia, GERD, breast cancer s/p lumpectomy with lymph node dissection and radiation, spinal stenosis, degenerative disc disease, neuropathy, osteoarthritis, obesity
Hospital Course : Presented to ED for difficulty urinating and suprapubic/lower abdominal ecchymosis in the context of recent groin access for PVI 07/08/24 for afib. She was found to have soft tissue hematoma, right groin pseudoaneurysm, acute blood
loss anemia. Her xarelto was initially held given acute blood loss anemia. Vascular surgery, IR, cardiology were consulted. She was treated with percutaneous thrombin injection of pseudoaneurysm by IR, and follow up ultrasound showed resolution.
Xarelto was restarted and hgb remained stable. No evidence of iron deficiency. Her urinary retention was initially managed with mcdonnell catheter; her urine output was adequate and after removal she had no difficulty voiding spontaneously. Her UA was
concerning for UTI and she was started on antibiotics, which were discontinued when urine culture showed no significant growth. She reported chest pain, and troponin was elevated though this was in the context of recent cardiac ablation and
consistently downtrended. Reassured by nonischemic EKG and spontaneous resolution of chest pain. On day of discharge she was stable. She was discharged home with close cardiology follow up outpatient.
Important imaging findings :
Exams: CT Abd/pelvis Angio W/wo Iv
FINDINGS:
CTA and Right Groin: The abdominal aorta is normal in caliber with calcific atherosclerotic changes. There is contrast opacification of the proximal celiac axis, SMA and ALCIDES. There is contrast opacification with some calcific atherosclerosis of the
proximal renal arteries bilaterally. The common iliac arteries demonstrate some atherosclerosis without significant focal stenosis. The external iliac arteries bilaterally are widely patent. In the region of the right inguinal fold, there is a small
fluid collection measuring approximately 4 x 2 x 5.5 cm compatible with a hematoma. Adjacent to the hematoma seen on series 501 images 129-130 there is a likely small pseudoaneurysm. There is no active extravasation of contrast seen in the right
groin.
Chest: The included lung bases contain some minor dependent subsegmental atelectasis.
Abdomen: The gallbladder is contracted likely postprandial as there is food material seen within the stomach. There are no findings to suggest biliary tract dilatation. No significant focal abnormality of the liver, pancreas, spleen or adrenal
glands are seen. The kidneys are lobulated bilaterally. There are no findings to suggest obstructive uropathy bilaterally. Evaluation of the intestinal tract is limited without oral contrast, without intestinal obstruction or free air. There is no
retroperitoneal lymphadenopathy or findings to suggest retroperitoneal hemorrhage.
Pelvis: There is been hardening artifact from metal hardware in the right hip significantly obscuring visualization of the soft tissues. Mcdonnell catheter/balloon is seen within an empty urinary bladder.
IMPRESSION:
Small right groin hematoma, with findings suggesting small adjacent pseudoaneurysm, as detailed above.
No additional significant finding. Please see above comments.
07/11/24
Exams: US Groin (vascular exam) RT
FINDINGS:
The common femoral artery is unremarkable with multiphasic waveforms. The common femoral vein is compressible and patent with expected phasicity. There is no pseudoaneurysm or arteriovenous fistula. Soft tissue hematoma measures 6.2 x 2.8 x 5.8 cm.
IMPRESSION:
Right groin pseudoaneurysm no longer visualized compatible with successful/interval percutaneous thrombin injection.
Soft tissue hematoma measures 6.2 x 2.8 x 5.8 cm.
Procedure findings :
07/10/24
Exams: XA Thrombin Injection; XA Us Guidance For Biopsy
PROCEDURE: Ultrasound-guided thrombin injection right groin pseudoaneurysm.
INDICATION: History of cardiac ablation procedure with right groin vascular access. CT abdomen and pelvis showing small pseudoaneurysm formation right groin.
TECHNIQUE AND FINDINGS: The risks and benefits of the procedure were discussed with the patient and informed, written consent was obtained. The patient was brought into the angiography suite and positioned supine. A time-out was performed to verify
the patient's identity and the planned procedure. The right groin was prepped and draped in the usual sterile fashion. Maximum sterile barrier technique was used throughout. The procedure was performed under continuous hemodynamic monitoring.
Preliminary ultrasound was performed. As seen on the previous CT, small pseudoaneurysm identified within the subcutaneous soft tissues of the right groin. This is significantly superficial to the common femoral vessels. Small arterial branch vessel
to the abdominal wall courses adjacent to the pseudoaneurysm and is likely the source. Next, 5 mL of 1% lidocaine was administered subcutaneously for local anesthesia. Then under direct ultrasound guidance, a 22-gauge spinal needle was advanced into
the pseudoaneurysm. Next, injection was performed with thrombin 1000 units per cc solution. There was thrombosis of the pseudoaneurysm with injection of 0.1 mL, 100 units. No further abnormal color Doppler vascularity was identified sonographically
at this point. There were expected waveforms in the common femoral artery and the common femoral vein post injection. Needle was removed and hemostasis was obtained at the access site with manual compression. A sterile dressing was applied.
IMPRESSION: Successful ultrasound guided thrombin injection right groin pseudoaneurysm as described.
Discharge Plan
-
Patient Disposition: Home (Routine Discharge)
Discharge Diagnosis/Procedures: Soft tissue hematoma and pseudoaneurysm, atrial fibrillation s/p pulmonary vein isolation 07/08/24, acute blood loss anemia, urinary retention, elevated troponin
Condition: Good
Diet: Low Cholesterol
Activity: As tolerated
Driving Restrictions: Not until seen by your Dr
Bathing Restrictions: OK to Shower
Blood Work: Repeat CBC in 1 week with PCP
Instructions: Taking care of bruises, Urinary retention - Discharge instructions
Referrals:
PRIVATE,PHYSICIAN [Family Provider] - in less than 1 week (Call your Primary Care Provider to schedule follow up appointment within 1 week of hospital discharge.)
Jackelyn Leiva CRNP [Specified Professional Personl] - 07/25/24 3:20 pm (You have a follow up visit with Dr. Chakraborty's Jackelyn RUCKER at the [facility]. Please call with questions. )
Prescriptions:
Continued
primidone 50 mg Tablet
100 mg PO QPM
primidone 50 mg Tablet
50 mg PO DAILY
thiamine HCl (vitamin B1) 100 mg Tablet
100 mg PO QPM
folic acid 400 mcg Tablet
400 mcg PO QPM
srwieag-slzrcdnpi-hnyj Tablet
3 tab PO Q48H
losartan 25 mg Tablet
25 mg PO QPM
vitamin B complex Tablet
1 tab PO QPM
furosemide 20 mg Tablet
20 mg PO HS
cholecalciferol (vitamin D3) [Vitamin D3] 125 mcg (5,000 unit) Tablet
125 mcg PO QPM
Xarelto 20 mg Tablet
20 mg PO HS
Premarin
1 dose vaginal WESA
diphenhydramine HCl [Benadryl] 25 mg Capsule
50 mg PO QPM
multivitamin Tablet
1 tab PO QPM
gabapentin 400 mg Capsule
1,200 mg PO QPM Qty: 30 0RF
gabapentin 300 mg Capsule
600 mg PO DAILY Qty: 30 0RF
metoprolol succinate [Toprol XL] 25 mg tablet extended release 24 hr
25 mg PO BID Qty: 60 0RF
cyclosporine [Restasis] 0.05 % Dropperette
1 drp OPHTHALMIC (EYE) Q12H
omeprazole 20 mg tablet,delayed release (DR/EC)
20 mg PO DAILY
Discontinued
tramadol 50 mg Tablet
50 mg PO DAILYPRN PRN (Reason: PAIN)
trimethoprim 100 mg Tablet
100 mg PO QPM
Patient Comments:
WHEN NOT ON ANTIBIOTICS
Discharge Orders:
Discharge Patient (As Directed); Ordered 07/12/24
Ordered By: Marlen Zaragoza
Discharge Date and Time
Print Language: PALAUAN
== END 2024-07-12 15:30 | disposition home or self-care (01) | DRG 813 ==
LOC: 4 WEST ACU 05:17
PROVIDERS: Internal Medicine; Physician Assistant; Radiology Vascular & Interventional Radiology; Student in an Organized Health Care Education/Training Program; ADMITTING PHYSICIAN Internal Medicine; ATTENDING PHYSICIAN Hospitalist; EMERGENCY PHYSICIAN Student in an Organized Health Care Education/Training Program; OTHER PHYSICIAN Internal Medicine Cardiovascular Disease; OTHER PHYSICIAN Surgery Vascular Surgery
PROC: 3E04317 Introduction of Other Thrombolytic into Central Vein, Percutaneous Approach (ICD-10-PCS; 2024-07-10)
DX: D68.32 Hemorrhagic disorder due to extrinsic circulating anticoagulants (principal); N39.0 Urinary tract infection, site not specified; Z87.891 Personal history of nicotine dependence; I48.0 Paroxysmal atrial fibrillation
CPT/HCPCS: 36002; 51702; 51798; 74174; 76942; 80048; 80053; 81003; 81015; 82607; 82728; 83540; 83550; 84484; 85014; 85018; 85027; 85610; 85730; 87070; 87086; 93005; 93306; 93926; 96374; 99285; C1733; C1766; Q9967

== ENCOUNTER 2024-07-14 18:11 | Emergency (ER) | payer OTHER, SELFPAY ==
[2024-07-14 18:16] VITALS: BP 168/88
[2024-07-14 18:37] VITALS: BMI 33.0
--- NOTE | 2024-07-14 19:01 | ED.GENMED ---
History of Present Illness
General
Chief Complaint: Urinary Symptoms
Source: patient
Exam Limitations: none
Time Seen by Provider: 07/14/24 18:27
History of Present Illness
History of Present Illness:
This is a 74 year old female that comes in with c/o urinary burning. States that she was just discharge on Monday. States that she had a cardiac ablation and developed a Pseudoaneurysm. States that she has bruising and swelling in the vaginal area.
states that she know has burning with urination. States that she also feels that her Essential tremors are worse. States that she had some abd discomfort, headache, lightheadedness and the urinary burning. States that she gets SOB with walking.
Denies any fever, chills, chest pain, nausea, vomiting, diarrhea.
Past History
Past History
ED Past Medical History: Arrthythmia (Atrial fib), Cancer (Breast CA), GERD, HTN, Hypercholesterolemia and Other (back pain, Headache, neck pain, cardiomyopathy, UTi, Endometriosis)
ED Past Surgical History: Cardiac (cardiac ablation, ), Gynecological (Hysterectomy), Orthopedic (Right Meniscus repair, Right hip repair) and Other (cataracts, Right lumpectomy)
Social History
Tobacco: Former smoker
Alcohol: Occasional
Personal:
Living: alone
Review of Systems
Review of Systems
All Other Systems: ROS reviewed and negative except as documented in HPI and ROS
Constitutional: Reports no symptoms; Denies fever or chills
EENT: Reports no symptoms
Respiratory: Reports trouble breathing (with walking); Denies cough
Cardiac: Reports no symptoms; Denies chest pain
ABD/GI: Reports abdominal pain; Denies nausea, vomiting or diarrhea
: Reports dysuria; Denies frequency or urgency
Musculoskeletal: Reports no symptoms
Skin: Reports no symptoms
Neurological: Reports headache and other (lightheaded)
Psychiatric: Reports no symptoms
Phy Exam
General Physical Exam
General Presentation: no apparent distress
General age: appears stated age
General Skin: warm and dry
General Habitus: elderly
General Mental: alert
General Hydration: appears well hydrated
ENT Exam
ENT Exam: TM's normal, pharynx normal and neck supple
Eye Exam
Eye Exam: EOMI
Cardiovascular Exam
Cardiovascular Exam: regular rate/rhythm, no edema and normal peripheral pulses
Pulmonary Exam
Pulmonary Exam: lungs clear, no respiratory distress, no rales, chest non tender, no crackles, no rhonchi, no wheezing and no cough
Gastrointestinal Exam
Gastrointestinal Exam: normal bowel sounds, non tender, soft, no organomegaly, no pulsatile mass and non distended
Genitourinary Exam Female
Vaginal Exam: other (vaginal area with contusion and redness on the inner Labia majora)
Musculoskeletal Exam
Musculoskeletal Exam: full ROM and no edema
Skin Exam
Skin Exam: normal color, warm/dry, no rash, no petechia and other (Contusion of the right lower abd and into the vaginal are and right medial thigh)
Psychiatric Exam
Psychiatric Exam: normal mood/affect
Course
Orders/Labs/Results
Orders:
Orders
07/14/24 19:23
Urinalysis Reflex To Culture Urgent
Date Specimen was Collected: 07/14/24
Time Specimen was Collected: 18:25
Urine Microscopic Reflex Cult Urgent
Urine Culture Urgent
DEIRDRE Source: U
Specimen Description:
Date Specimen was Collected: 07/14/24
Time Specimen was Collected: 18:25
07/14/24 19:44
Basic Metabolic Panel Urgent
Complete Blood Count/With Diff Urgent
07/14/24 20:25
Cephalexin Monohydrate [Keflex] 500 mg PO NOW STA
Abnormal Lab Results
07/14/24 07/14/24
19:23 19:44
RBC 2.71 L 10^6/uL
(4.20-5.40)
Hgb 9.3 L g/dL
(12.0-16.0)
Hct 26.1 L %
(37.0-47.0)
MCH 34.3 H pg
(27.0-31.0)
Abs Immat Gran (auto) 0.1 H 10^3/uL
(0-0.05)
Absolute Monos (auto) 0.7 H 10^3/uL
(0.1-0.6)
Immature Gran % 0.7 H %
(0-0.5)
Lymphocytes % 17.1 L %
(20.5-51.1)
Sodium 128 L mmol/L
(135-145)
Chloride 93 L mmol/L
(98-107)
BUN 22 H mg/dl
(7-17)
Glucose 103 H mg/dl
(70-99)
Ur Occult Blood Reflex 4+ A
(Negative)
Leukocyte Esterase Rfl 2+ A
(Negative)
Urine WBC (Reflex) >100 A /HPF
(0-5)
Urine Albumin (Reflex) 1+ A
(Neg - Trace)
07/14/24 19:44
07/14/24 20:08
H/H low but consistent with prior labs. Dehydration. Glucose nonfasting. Urine positive for infection.
Vital Signs
Initial and Last Documented VS:
Initial Vital Signs
Temp Pulse Resp BP Pulse Ox
98.0 F 75 17 168/88 99
07/14/24 18:16 07/14/24 18:16 07/14/24 18:16 07/14/24 18:16 07/14/24 18:16
Last Documented Vital Signs
Temp Pulse Resp BP Pulse Ox
98.0 F 64 16 130/77 96
07/14/24 18:16 07/14/24 19:45 07/14/24 19:45 07/14/24 19:45 07/14/24 19:45
MDM/Problems Addressed
Differential Diagnosis Includes:
UTI, vaginal excoriation
MDM/Problems Addressed:
This is a 74 year old female that comes in with c/o urinary burning.
will check labs, Urine
Back into see patient. Explained that she has a UTI. Will start patient on Keflex. Patient also has hyponatremia. States that her sodium has been low before. Suggested that she eat some canned soup or boxed food to help elevated her Sodium. No more
the 8-8oz glasses of water. An out patient lab form has been given to patient to recheck her labs in 2 days. This will be sent to Dr. Iniguez as patient has no other primary care doctor here. Patient to return with any concerns.
Chronic conditions affecting care:
history of UTI
Acute Exacerbation and/or Progression of Chronic Illness:
NA
*Pulse Oximetry
Patient hypoxic: no
*EKG
Interpreted by ED Provider?: NA
Rate: EKG- N/A
*Deicer Inspector Pneumatic Interpretation
Rate: Deicer Inspector Pneumatic- N/A
*Critical Care Note
Total Time (30-74mins, 75-104mins- exclusive of procedures): Not Applicable
ED Attending Note
-
Portions of this chart may have been created with voice recognition software.� Occasional wrong word or��sound alike� substitutions may have occurred due to the inherent limitations of voice recognition software.
Discharge Plan
Departure
Patient Disposition: Home (Routine Discharge)
Date of Disposition: 07/14/24
Time of Disposition: 20:38
Patient with high blood pressure during this ER visit?: Yes
Condition: Good
Covid-19: Not Applicable
Discharge Problem:
Urinary tract infection, Acute hyponatremia
Instructions: Urinary Tract Infection, Adult (DC), Hyponatremia, BLOOD PRESSURE
Prescriptions:
New
cephalexin 500 mg capsule
500 mg PO BID 7 Days Qty: 13 0RF
No Action
primidone 50 mg Tablet
100 mg PO QPM
primidone 50 mg Tablet
50 mg PO DAILY
thiamine HCl (vitamin B1) 100 mg Tablet
100 mg PO QPM
folic acid 400 mcg Tablet
400 mcg PO QPM
[id number]-bfoxovhhr-ltyj Tablet
3 tab PO Q48H
losartan 25 mg Tablet
25 mg PO QPM
vitamin B complex Tablet
1 tab PO QPM
furosemide 20 mg Tablet
20 mg PO HS
cholecalciferol (vitamin D3) [Vitamin D3] 125 mcg (5,000 unit) Tablet
125 mcg PO QPM
Xarelto 20 mg Tablet
20 mg PO HS
Premarin
1 dose vaginal WESA
diphenhydramine HCl [Benadryl] 25 mg Capsule
50 mg PO QPM
multivitamin Tablet
1 tab PO QPM
gabapentin 400 mg Capsule
1,200 mg PO QPM Qty: 30 0RF
gabapentin 300 mg Capsule
600 mg PO DAILY Qty: 30 0RF
metoprolol succinate [Toprol XL] 25 mg tablet extended release 24 hr
25 mg PO BID Qty: 60 0RF
cyclosporine [Restasis] 0.05 % Dropperette
1 drp OPHTHALMIC (EYE) Q12H
omeprazole 20 mg tablet,delayed release (DR/EC)
20 mg PO DAILY
Referrals:
UNKNOWN - PT DOES,NOT KNOW [Family Provider] -
Activity Restrictions/Additional Instructions:
As discussed, you have a urinary tract infection and your blood work shows that your sodium is low. Please repeat your blood work in 2 days to make sure that your sodium is not going lower. These results will be sent to. Dr Iniguez since you do
not have a primary care doctor in the area. You also have a prescription sent to your Pharmacy to treat the urinary tract infection. Please drink only 8-8oz glasses daily. IF YOU HAVE ANY OTHER CONCERNS PLEASE RETURN TO THE EMERGENCY ROOM
Interventions
Interventions:
*Risk Screen - Suicide Last Done: 07/14/24 18:15
*General Assessment Last Done: 07/14/24 18:15
*Neglect/Abuse Screening Last Done: 07/14/24 18:15
ED- Fall Risk Assessment Last Done: 07/14/24 18:32
*ED COVID-19 Vaccine History Last Done: 07/14/24 18:15
ED-Female Genitourinary Assessment Last Done: 07/14/24 18:32
Discharge Date and Time
Print Language: IRISH
[2024-07-14 19:31] LABS: Urine Albumin 1+ (Neg - Trace); Urine Bilirubin Negative (Negative); Urine Character Slightly Cloudy (Clear); Urine Color Yellow; Urine Glucose Negative (Negative); Urine Ketone Negative (Negative); Urine Leukocyte 2+ (Negative); Urine Nitrite Negative (Negative); Urine Occult Blood 4+ (Negative); Urine Urobilinogen Negative (Neg - 1+); Urine pH 6.5 (5.0-9.0)
[2024-07-14 19:41] LABS: Urine White Cell >100 /HPF (0-5)
[2024-07-14 19:45] VITALS: BP 130/77
[2024-07-14 19:50] LABS: % Basophils 0.4 % (0-2); % Immature Granulocytes 0.7 % (0-0.5); % Lymphocytes 17.1 % (20.5-51.1); % Monocytes 7.5 % (1.7-9.3); % Neutrophils 72.3 % (42.2-75.2); Absolute Eosinophils 0.2 10^3/uL (0-0.7); Absolute Immature Granulocytes 0.1 10^3/uL (0-0.05); Absolute Lymphocytes 1.5 10^3/uL (1.2-3.4); Absolute Monocytes 0.7 10^3/uL (0.1-0.6); Absolute Neutrophils 6.4 10^3/uL (1.4-6.5); Hematocrit 26.1 % (37.0-47.0); Hemoglobin 9.3 g/dL (12.0-16.0); Mean Corp Hgb Conc. 35.6 g/dL (33.0-37.0); Mean Corpuscular Hgb 34.3 pg (27.0-31.0); Mean Corpuscular Volume 96.3 fL (81.0-99.0); Mean Platelet Volume 9.3 fL (7.4-10.4); Nucleated Red Blood Cells % 0 %; Platelet Count 235 10^3/uL (130-400); Red Blood Cell Count 2.71 10^6/uL (4.20-5.40); Red Cell Dist. Width 13.3 % (11.5-14.5); White Blood Cell Count 8.9 10^3/uL (4.8-10.8)
[2024-07-14 20:21] LABS: Blood Urea Nitrogen 22 mg/dl (7-17); Calcium 8.5 mg/dl (8.4-10.2); Carbon Dioxide 24 mmol/L (22-30); Chloride 93 mmol/L (98-107); Estimated Creatinine Clearance 72 ml/min; Glucose 103 mg/dl (70-99); Sodium 128 mmol/L (135-145); eGFR > 60.00
[2024-07-14] MEDS: KEFLEX 500 MG PO (20:39)
[2024-07-14 20:40] VITALS: BP 149/68
== END 2024-07-14 20:54 | disposition home or self-care (01) ==
LOC: EMR 18:11
PROVIDERS: Clinical Nurse Specialist Family Health; Student in an Organized Health Care Education/Training Program; EMERGENCY PHYSICIAN Emergency Medicine
DX: N39.0 Urinary tract infection, site not specified (principal); E87.1 Hypo-osmolality and hyponatremia; R42 Dizziness and giddiness; R51.9 Headache, unspecified; R10.9 Unspecified abdominal pain; I10 Essential (primary) hypertension; G25.0 Essential tremor; R06.02 Shortness of breath; K21.9 Gastro-esophageal reflux disease without esophagitis; I42.9 Cardiomyopathy, unspecified; I48.91 Unspecified atrial fibrillation; E78.00 Pure hypercholesterolemia, unspecified; Z98.890 Other specified postprocedural states; Z79.01 Long term (current) use of anticoagulants; Z85.3 Personal history of malignant neoplasm of breast; Z87.440 Personal history of urinary (tract) infections; Z87.891 Personal history of nicotine dependence; Z88.1 Allergy status to other antibiotic agents; Z88.5 Allergy status to narcotic agent; Z88.2 Allergy status to sulfonamides
CPT/HCPCS: 99283; 80048; 81003; 81015; 85025; 87086